=== PATIENT | female | born 1990 | race Caucasian/White ===

== ENCOUNTER 2016-05-07 02:45 | Inpatient (IN) | payer OTHER ==
[2016-05-07 04:30] VITALS: BMI 33.4
[2016-05-07] MEDS ORDERED: ZIDOVUDINE INJECTION 1,000 MG in DEXTROSE 5%-WATER - 150 ML IVPB ONE (04:30)
[2016-05-07] MEDS ORDERED: ZIDOVUDINE INJECTION 1,000 MG in DEXTROSE 5%-WATER - 150 ML IVPB SCH ×2 (04:45→06:00)
[2016-05-07] MEDS ORDERED: AMPICILLIN 2 GM/100 ML BAG (PRE-DOCKED) IVPB ONE (05:00)
[2016-05-07] MEDS ORDERED: WATER IVPB ONE (05:15)
[2016-05-07] MEDS ORDERED: DEXTROSE 5% IVPB ONE (05:15)
[2016-05-07] MEDS ORDERED: ZIDOVUDINE IVPB ONE (05:15)
[2016-05-07 05:58] LABS: BASOPHIL 0.3 % (0-2.0); MCHC 33.4 g/dl (32.0-36.0); MEAN CELL VOLUME 86.8 fl (80-96); MEAN PLT VOLUME 13.1 fl (7.5-11.1); NEUTROPHILS 64.8 % (42.8-82.8); PLATELET COUNT 144 K/MM3 (134-434); WHITE BLOOD COUNT 8.9 K/mm3 (4.0-10.0)
[2016-05-07] MEDS ORDERED: ELECTROLYTE-148 SOLN 1,000 ML IV SCH (06:00)
[2016-05-07 06:11] LABS: INR 1.04 (0.82-1.09); PROTHROMBIN TIME (PATIENT) 11.5 SEC (9.98-11.88)
[2016-05-07 06:13] LABS: ACTIVATED PTT 26.9 SECONDS (26.9-34.4)
[2016-05-07 06:26] LABS: CREATININE 0.6 mg/dL (0.55-1.02)
[2016-05-07] MEDS ORDERED: BUTORPHANOL TARTRATE 1 MG/ML VIAL IVPUSH ONE ×2 (07:47→16:53)
--- NOTE | 2016-05-07 08:01 | HP ---
Past Medical History - Primary Care Physician PCP:: Alexandre Pruett - Admission Chief Complaint: 39 weeks, labor, HIV positve History of Present Illness: 26 yo f g 5 p2022 edc by 05/12/16 in labor, cx 3 cm 75 vx -2 mi, fhr cat 1, contraction irregular. hx of positve HIV , since 2014, . viral load undetectable as per patient History Source: Patient Limitations to Obtaining History: No Limitations - Past Medical History Renal/: Yes: UTI (admitted for pyelo during ) ...: 5 ...Para: 2 ...Term: 2 ...: 0 ...Spon : 1 ...Induced : 1 ...Multiple Gestation: 0 ...LMP: 08/06/15 ... Weeks Gestation by Dates: 39.2 ...EDC by Dates: 05/12/16 ...EDC by Sono: 05/17/16 Infectious Disease: Yes: HIV - Past Surgical History Hx Myomectomy: No Hx Transabdominal Cerclage: No Additional Surgical History: bunionectomy - Smoking History Smoking history: Current every day smoker Have you smoked in the past 12 months: Yes Aproximately how many cigarettes per day: 2 If you are a former smoker, when did you quit?: PATIENT STATES SHE ONLY STARTED SMOKING AGAIN THIS WEEK. - Alcohol/Substance Use Hx Alcohol Use: No - Social History History of Recent Travel: No Home Medications - Allergies Allergies/Adverse Reactions: Allergies Allergy/AdvReac Type Severity Reaction Status Date / Time No Known Allergies Allergy Verified 05/07/16 05:55 - Home Medications Home Medications: Ambulatory Orders Emtricitabine/Tenofovir [Truvada] 1 tab PO DAILY 10/31/15 Dolutegravir Sodium 50 mg PO DAILY 04/10/16 Ferrous Sulfate 325 mg PO DAILY 05/07/16 Pnv 29-1 Tablet 1 tab PO DAILY 05/07/16 Review of Systems - Review of Systems Constitutional: reports: No Symptoms HENT: reports: No Symptoms Neck: reports: No Symptoms Cardiovascular: reports: No Symptoms Respiratory: reports: No Symptoms Gastrointestinal: reports: No Symptoms Genitourinary: reports: Frequency Breasts: reports: No Symptoms Reported Musculoskeletal: reports: No Symptoms Integumentary: reports: No Symptoms Neurological: reports: No Symptoms Endocrine: reports: No Symptoms Hematology/Lymphatic: reports: No Symptoms Psychiatric: reports: No Symptoms Physical Exam - Maternity Vital Signs: Vital Signs Temperature 97.8 F 05/07/16 07:00 Pulse Rate 80 05/07/16 07:00 Respiratory Rate 18 05/07/16 07:00 Blood Pressure 102/42 05/07/16 07:00 O2 Sat by Pulse Oximetry (%) Constitutional: Yes: Well Nourished, No Distress, Calm Eyes: Yes: WNL, Conjunctiva Clear, EOM Intact HENT: Yes: WNL, Atraumatic, Normocephalic Neck: Yes: WNL, Supple, Trachea Midline Cardiovascular: Yes: WNL, Regular Rate and Rhythm Breast(s): Yes: WNL - Abdominal Exam/OB Fundal Height: 40 Number of Fetuses: Single Presentation: Vertex Contractions: Yes Regularity: Irregular Intensity: Mod/Strong Monitor Mode: External Heart Rate Location: [facility] Category: I Accelerations: Uniform Decelerations: None - Vaginal Exam/OB Vaginal Bleediing: No Speculum Exam: No Dilatation (cm): 3 cm Effacement (%): 75 Amniotic Membrane Status: Intact Presentation: Vertex/Position Station: -2 - Physical Exam Musculoskeletal: Yes: WNL Extremities: Yes: WNL Edema: Yes Edema: LLE: Trace, RLE: Trace Deep Tendon Reflex Grade: Normal +2 - Labs Lab Results: CBC, BMP 05/07/16 04:50 05/07/16 04:50 Hemorrhage Risk Assessment - Risk Factors Medium Risk Factors: Yes: Greater than 4 previous births, None Risk Score: 2 Risk Level: High Risk Problem List - Problems (1) with 39 completed weeks gestation Code(s): Z3A.39 - 39 WEEKS GESTATION OF (2) HIV disease affecting Code(s): O98.719 - HUMAN IMMUNODEF VIRUS DISEASE COMP , UNSP TRIMESTER Qualifiers: Trimester: third trimester Qualified Code(s): O98.713 - Human immunodeficiency virus [HIV] disease complicating , third trimester (3) First stage of labor established Code(s): AMU8166 - Assessment/Plan plan admit, fh monitoring, anti viaral iv meds .pain management
[2016-05-07] MEDS ORDERED: OXYTOCIN 15 UNITS/ LR 250 ML 250 ML IVPB SCH (08:15)
[2016-05-07] MEDS: AMPICILLIN (PRE-DOCKED) 1 GM/100 ML BAG IVPB SCH ×3 (09:30→17:00)
[2016-05-07] MEDS ORDERED: PRENATAL VITAMINS W/ FOLIC ACID TABLET (FP) PO SCH (10:00)
--- NOTE | 2016-05-07 14:31 | PN ---
Progress Note (short form) - Note Progress Note: cx 5 cm, 80 vx -1 fhr cat 1 arom, clear , fhr cat 1 Problem List - Problems (1) with 39 completed weeks gestation Code(s): Z3A.39 - 39 WEEKS GESTATION OF (2) HIV disease affecting Code(s): O98.719 - HUMAN IMMUNODEF VIRUS DISEASE COMP , UNSP TRIMESTER Qualifiers: Trimester: third trimester Qualified Code(s): O98.713 - Human immunodeficiency virus [HIV] disease complicating , third trimester (3) First stage of labor established Code(s): FTN2040 -
--- NOTE | 2016-05-07 16:52 | PN ---
Progress Note (short form) - Note Progress Note: cx 7 cm 100 vx 0 mr , fhr cat 1, contraction regular q 2 min, wants pain meds Problem List - Problems (1) with 39 completed weeks gestation Code(s): Z3A.39 - 39 WEEKS GESTATION OF (2) HIV disease affecting Code(s): O98.719 - HUMAN IMMUNODEF VIRUS DISEASE COMP , UNSP TRIMESTER Qualifiers: Trimester: third trimester Qualified Code(s): O98.713 - Human immunodeficiency virus [HIV] disease complicating , third trimester (3) First stage of labor established Code(s): EJW4145 -
[2016-05-07] MEDS ORDERED: BENZOCAINE 28 GM HEMORRHOIDAL OINTMENT TP PRN (17:28)
[2016-05-07] MEDS ORDERED: BENZOCAINE 20% 57 GM BOTTLE TP PRN (17:28)
[2016-05-07] MEDS ORDERED: ACETAMINOPHEN 325 MG TABLET (FP) PO PRN (17:28)
[2016-05-07] MEDS ORDERED: WITCH HAZEL 50% (TUCKS) 40 PAD/JAR PAD TP PRN (17:28)
[2016-05-07] MEDS ORDERED: IBUPROFEN 600 MG TABLET (FP) PO PRN (17:28)
[2016-05-07] MEDS ORDERED: METHYLERGONOVINE MALEATE 0.2 MG/1 ML AMP IM PRN (17:28)
[2016-05-07] MEDS ORDERED: BISACODYL 10 MG SUPP.RECT RC PRN (17:28)
[2016-05-07] MEDS ORDERED: D5W-LR W/ 20 UNITS OXYTOCIN 1,000 ML IV SCH (17:30)
[2016-05-07] MEDS: EMTRICITABINE 200MG/TENOFOVIR 300MG PO SCH (20:40)
[2016-05-08] MEDS ORDERED: FERROUS SO4 325 MG TABLET (FP) PO SCH (08:00)
[2016-05-08 08:45] LABS: BASOPHIL 0.5 % (0-2.0); EOSINOPHIL 2.3 % (0-4.5); MCH 28.9 pg (25.7-33.7); MCHC 32.8 g/dl (32.0-36.0); MEAN CELL VOLUME 88.1 fl (80-96); MEAN PLT VOLUME 12.4 fl (7.5-11.1); NEUTROPHILS 66.9 % (42.8-82.8); PLATELET COUNT 110 K/MM3 (134-434); RDW 15.5 % (11.6-15.6)
[2016-05-08] MEDS: EMTRICITABINE 200MG/TENOFOVIR 300MG PO SCH (09:05)
[2016-05-08] MEDS: FERROUS SO4 325 MG TABLET (FP) PO SCH ×2 (09:05→17:37)
[2016-05-08] MEDS: PRENATAL VITAMINS W/ FOLIC ACID TABLET (FP) PO SCH (09:05)
[2016-05-08] MEDS: DOLUTEGRAVIR SODIUM 50 MG TABLET PO SCH (09:05)
--- NOTE | 2016-05-08 12:44 | PN ---
Post Progress Note Post Day: 1 Type of Delivery: Vital Signs: Vital Signs Temperature 99.3 F 05/08/16 07:59 Pulse Rate 98 H 05/08/16 07:59 Respiratory Rate 20 05/08/16 07:59 Blood Pressure 135/56 05/08/16 07:59 O2 Sat by Pulse Oximetry (%) Breast Exam: Yes: Soft Uterus: Yes: Fundus Firm Abdomen/GI: Yes: Abdomen soft Lochia: Yes: Rubra Lochia, amount: Small Extremities: Yes: Calves non-tender Perineum: Yes: Intact Activity: Ambulating - Labs Labs: CBC WBC 9.0 K/mm3 (4.0-10.0) 05/08/16 07:00 RBC 4.07 M/mm3 (3.60-5.2) 05/08/16 07:00 Hgb 11.8 GM/dL (10.7-15.3) 05/08/16 07:00 Hct 35.8 % (32.4-45.2) 05/08/16 07:00 MCV 88.1 fl (80-96) 05/08/16 07:00 MCHC 32.8 g/dl (32.0-36.0) 05/08/16 07:00 RDW 15.5 % (11.6-15.6) 05/08/16 07:00 Plt Count 110 K/MM3 (134-434) L D 05/08/16 07:00 MPV 12.4 fl (7.5-11.1) H 05/08/16 07:00 Neutrophils % 66.9 % (42.8-82.8) 05/08/16 07:00 Lymphocytes % 24.2 % (8-40) 05/08/16 07:00 Monocytes % 6.1 % (3.8-10.2) 05/08/16 07:00 Eosinophils % 2.3 % (0-4.5) 05/08/16 07:00 Basophils % 0.5 % (0-2.0) 05/08/16 07:00 Assessment/Plan reg diet oob continue care
[2016-05-08] MEDS ORDERED: SENNOSIDES/DOCUSATE COMBO (SENNA PLUS) TABLET (UD) PO PRN (22:00)
[2016-05-09] MEDS: FERROUS SO4 325 MG TABLET (FP) PO SCH (08:31)
[2016-05-09 08:44] VITALS: BP 126/88; PULSE 81; TEMP 98.3
[2016-05-09] MEDS: EMTRICITABINE 200MG/TENOFOVIR 300MG PO SCH (09:22)
[2016-05-09] MEDS: DOLUTEGRAVIR SODIUM 50 MG TABLET PO SCH (09:22)
[2016-05-09] MEDS: PRENATAL VITAMINS W/ FOLIC ACID TABLET (FP) PO SCH (09:22)
--- NOTE | 2016-05-11 03:32 | DS ---
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: Vital Signs Temperature 98.3 F 05/09/16 08:43 Pulse Rate 81 05/09/16 08:43 Respiratory Rate 20 05/09/16 08:43 Blood Pressure 126/88 05/09/16 08:43 O2 Sat by Pulse Oximetry (%) Constitutional: Yes: Well Nourished, No Distress, Calm Eyes: Yes: WNL, Conjunctiva Clear, EOM Intact HENT: Yes: WNL, Atraumatic, Normocephalic Neck: Yes: WNL, Supple, Trachea Midline Cardiovascular: Yes: WNL, Regular Rate and Rhythm Respiratory: Yes: WNL, Regular, CTA Bilaterally Gastrointestinal: Yes: WNL ...Rectal Exam: Yes: WNL Renal/: Yes: WNL ....Post : Yes: Uterus firm, Uterus non-tender, Slight lochia rubra Breast(s): Yes: WNL Musculoskeletal: Yes: WNL Extremities: Yes: WNL Edema: No Integumentary: Yes: WNL Neurological: Yes: WNL, Alert, Oriented ...Motor Strength: WNL Psychiatric: Yes: WNL, Alert, Oriented Labs: CBC, BMP 05/08/16 07:00 05/07/16 04:50 Delivery - Delivery Vaginal Delivery: Spontaneous (no complication) Type of Anesthesia: None Episiotomy/Laceration: None EBL (cc): 300 Delivery, Single - Stages of Labor Date 1st Stage Initiatied: 05/07/16 Time 1st Stage Initiated: 01:00 Date 2nd Stage Initiated: 05/07/16 Time 2nd Stage Initiated: 17:10 Date of Delivery: 05/07/16 Time of Delivery: 17:18 Time Placenta Delivered: 17:20 Placenta: Yes: Spontaneous - 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 [phone] Referrals: Alexandre Pruett MD [Staff Physician] - Disposition: HOME - Home Medications Comprehensive Discharge Medication List: Ambulatory Orders Emtricitabine/Tenofovir [Truvada] 1 tab PO DAILY 10/31/15 Dolutegravir Sodium 50 mg PO DAILY 04/10/16 Ferrous Sulfate 325 mg PO DAILY 05/07/16 Pnv 29-1 Tablet 1 tab PO DAILY 05/07/16 Ibuprofen [Motrin -] 600 mg PO TID #21 tablet 05/08/16
== END 2016-05-09 16:20 | disposition home or self-care (01) | DRG 560 ==
LOC: JDEL 02:45 → JLDR 03:40 → J3W 20:20
PROVIDERS: ADMIT Obstetrics & Gynecology; ATTEND Obstetrics & Gynecology
PROC: 10E0XZZ Delivery of Products of Conception, External Approach (ICD-10-PCS; principal; 2016-05-07)
DX: O98.72 Human immunodeficiency virus [HIV] disease complicating childbirth (principal); Z3A.39 39 weeks gestation of pregnancy; Z37.0 Single live birth; Z21 Asymptomatic human immunodeficiency virus [HIV] infection status
CPT/HCPCS: 36415; 59409; 80048; 85025; 85610; 85730; 86593; 86850; 86900; 86901

== ENCOUNTER → 2016-08-23 | Emergency (ER) | payer OTHER ==
[2016-08-23 23:46] VITALS: BP 109/68; PULSE 93; TEMP 98.4; BMI 29.2
--- NOTE | 2016-08-24 01:08 | PDOC ---
History of Present Illness - General History Source: Patient Exam Limitations: No Limitations - History of Present Illness Travel History: No Timing/Duration: reports: intermittent Quality: reports: mild Pain Radiation: reports: back Activities at Onset: reports: none <Lay Flores - Last Filed: 08/24/16 02:52> <Dee Langford - Last Filed: 08/26/16 06:38> - General Chief Complaint: Back Pain Stated Complaint: BACK PAIN Time Seen by Provider: 08/24/16 00:28 Past History - Past Medical History Asthma: No Cancer: No Cardiac Disorders: No Diabetes: No HTN: No Seizures: No Thyroid Disease: No - Reproductive History (#): 3 Para: 1 Cervical CA: No Dysfunctional Uterine Bleeding: No Ectopic : No Endometrial CA: No Polycystic Ovaries: No Therapeutic (s) & number: No Tubal Ligation: No Spontaneous : 1 - Psycho/Social/Smoking Cessation Hx Anxiety: No Suicidal Ideation: No Smoking Status: No Smoking History: Current every day smoker Have you smoked in the past 12 months: Yes Number of Cigarettes Smoked Daily: 10 If you are a former smoker, when did you quit?: PATIENT STATES SHE ONLY STARTED SMOKING AGAIN THIS WEEK. Information on smoking cessation initiated: No Hx Alcohol Use: No Drug/Substance Use Hx: No Substance Use Type: None Hx Substance Use Treatment: No <Lay Flores - Last Filed: 08/24/16 02:52> <Dee Langford - Last Filed: 08/26/16 06:38> - Past Medical History Allergies/Adverse Reactions: Allergies Allergy/AdvReac Type Severity Reaction Status Date / Time No Known Allergies Allergy Verified 08/23/16 23:46 Home Medications: Ambulatory Orders Emtricitabine/Tenofovir [Truvada] 1 tab PO DAILY 10/31/15 Dolutegravir Sodium 50 mg PO DAILY 04/10/16 Ferrous Sulfate 325 mg PO DAILY 05/07/16 Pnv 29-1 Tablet 1 tab PO DAILY 05/07/16 Ibuprofen [Motrin -] 600 mg PO TID #21 tablet 05/08/16 Review of Systems - Review of Systems Constitutional: No: Symptoms Reported, See HPI, Chills, Diaphoresis, Fever, Loss of Appetite, Malaise, Night Sweats, Weakness, Weight Stable, Unintentional Wgt. Loss, Unexplained wgt Loss, Other HEENTM: No: Symptoms Reported, See HPI, Eye Pain, Blurred Vision, Tearing, Recent change in vision, Double Vision, Cataracts, Ear Pain, Ocular Prothesis, Ear Discharge, Nose Pain, Nose Congestion, Tinnitus, Nose Bleeding, Hearing Loss , Throat Pain, Throat Swelling, Mouth Pain, Dental Problems, Difficulty Swallowing, Mouth Swelling, Other Respiratory: No: Symptoms reported, See HPI, Cough, Orthopnea, Shortness of Breath, SOB with Exertion, SOB at Rest, Stridor, Wheezing, Productive cough, Hemoptysis, Other Cardiac (ROS): No: Symptoms Reported, See HPI, Chest Pain, Edema, Irregular Heart Rate, Lightheadedness, Palpitations, Syncope, Chest Tightness, Other : Yes: Other (vaginal bleeding) Musculoskeletal: No: Symptoms Reported, See HPI, Back Pain, Gout, Joint Pain, Joint Swelling, Muscle Pain, Muscle Weakness, Neck Pain, Joint Stiffness, Other Integumentary: No: Symptoms Reported, See HPI, Bruising, Change in Color, Change in Hair/Nails, Dryness, Erythema, Flushing, Lesions, Lumps, Pallor, Pruritus, Rash, Sweating, Other Neurological: No: Symptoms reported, See HPI, Headache, Numbness, Paresthesia, Pre-Existing Deficit, Seizure, Tingling, Tremors, Weakness, Unsteady Gait, Ataxia, Dizziness, Other <Lay Flores - Last Filed: 08/24/16 02:52> *Physical Exam - Vital Signs Last Vital Signs Temp Pulse Resp BP Pulse Ox 98.4 F 93 H 18 109/68 99 08/23/16 23:43 08/23/16 23:43 08/23/16 23:43 08/23/16 23:43 08/23/16 23:43 - Physical Exam General Appearance: Yes: Nourished HEENT: positive: Normal Voice Neck: positive: Supple Respiratory/Chest: positive: Lungs Clear Cardiovascular: positive: Regular Rhythm, Regular Rate Female Pelvic Exam: positive: vaginal bleeding Gastrointestinal/Abdominal: positive: Normal Bowel Sounds, Soft Musculoskeletal: positive: Normal Inspection Extremity: positive: Normal Inspection, Normal Range of Motion Integumentary: positive: Normal Color, Warm Neurologic: positive: Fully Oriented, Alert <Lay Flores - Last Filed: 08/24/16 02:52> - Vital Signs Last Vital Signs Temp Pulse Resp BP Pulse Ox 98.4 F 93 H 18 109/68 99 08/23/16 23:43 08/23/16 23:43 08/23/16 23:43 08/23/16 23:43 08/23/16 23:43 <Dee Langford - Last Filed: 08/26/16 06:38> ED Treatment Course - ADDITIONAL ORDERS Additional order review: Laboratory Results 08/24/16 02:08 Beta HCG, Quant 415.1 <Dee Langford - Last Filed: 08/26/16 06:38> Medical Decision Making - Medical Decision Making 08/24/16 02:24 26-year-old female presents with a history of vaginal bleeding for the past week. She states that she's had positive tests and was seen at another hospital about 3 days ago for vaginal bleeding. She states that the ultrasound showed a gestational sac that was low in the uterus She has not had a care for this yet. 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 Past medical history significant for HIV positive since 2014. She is followed by Dr. Pride at [facility], and she is on Truvada 5, para 2 08/24/16 02:51 bhcg 415 US no IUP just thickened endometrium up to 1.8cm <Lay Flores - Last Filed: 08/24/16 02:52> *DC/Admit/Observation/Transfer <Lay Flores - Last Filed: 08/24/16 02:52> - Discharge Dispostion Admit: No <Dee Langford - Last Filed: 08/26/16 06:38> Diagnosis at time of Disposition: Miscarriage - Discharge Dispostion Disposition: HOME Condition at time of disposition: Stable - Referrals Referrals: Gilda Ricks MD [Primary Care Provider] - - Patient Instructions Printed Discharge Instructions: DI for Miscarriage Additional Instructions: [facility] hand
== END | disposition home or self-care (01) ==
LOC: JER 23:35
DX: O02.1 Missed abortion (principal); O98.711 Human immunodeficiency virus [HIV] disease complicating pregnancy, first trimester; Z3A.00 Weeks of gestation of pregnancy not specified; Z21 Asymptomatic human immunodeficiency virus [HIV] infection status
CPT/HCPCS: 36415; 76817-TC; 84702; 99281-25; 99282-25

== ENCOUNTER 2017-10-06 22:45 | Inpatient (IN) | payer OTHER ==
[2017-10-06] MEDS ORDERED: PROMETHAZINE HCL 25 MG/1 ML VIAL IVPUSH ONE (23:45)
[2017-10-06] MEDS ORDERED: AMPICILLIN - 2 GM in SODIUM CHLORIDE 100 ML IVPB ONE (23:45)
[2017-10-06] MEDS ORDERED: ELECTROLYTE-148 SOLN 1,000 ML IV SCH (23:45)
[2017-10-06] MEDS ORDERED: BUTORPHANOL TARTRATE 1 MG/ML VIAL IVPUSH ONE (23:45)
--- NOTE | 2017-10-06 23:59 | HP ---
Past Medical History - Primary Care Physician PCP:: Alexandre Pruett - Admission Chief Complaint: 38.4 weeks, HIV positive , labor History of Present Illness: 27 yo f 0 6 3 38.4 weeks, with hx of positve HIV , viral load not detectable on antiviral ,c/o contraction since 7 pm tonight, no rom, no bleeding , cx 3 cm 80 vx -2 mi, fhr cat. , irregular contraction, vaginal delivery vs c/ s risks and benfit of each discussed , wants to try vaginal delivery History Source: Patient Limitations to Obtaining History: No Limitations - Past Medical History Renal/: Yes: UTI (admitted for pyelo during ) ...: 10 ...Para: 3 ...Induced : 6 ... Weeks Gestation by Dates: 38.4 Heme/Onc: Yes: Anemia Infectious Disease: Yes: HIV - Past Surgical History Hx Myomectomy: No Hx Transabdominal Cerclage: No - Smoking History Smoking history: Current every day smoker Have you smoked in the past 12 months: Yes Aproximately how many cigarettes per day: 10 If you are a former smoker, when did you quit?: PATIENT STATES SHE ONLY STARTED SMOKING AGAIN THIS WEEK. - Alcohol/Substance Use Hx Alcohol Use: No - Social History History of Recent Travel: No Home Medications - Allergies Allergies/Adverse Reactions: Allergies Allergy/AdvReac Type Severity Reaction Status Date / Time No Known Allergies Allergy Verified 09/27/17 22:19 - Home Medications Home Medications: Ambulatory Orders Tivicay 50 mg PO DAILY 09/18/17 Truvada 200 mg-300 mg Tablet 300 mg PO DAILY 09/18/17 Vit 108/Iron/Folic AC [ One Tablet] 1 each PO DAILY 09/27/17 Review of Systems - Review of Systems Constitutional: reports: Malaise Eyes: reports: No Symptoms HENT: reports: No Symptoms Neck: reports: No Symptoms Cardiovascular: reports: No Symptoms Respiratory: reports: No Symptoms Gastrointestinal: reports: No Symptoms Genitourinary: reports: No Symptoms Musculoskeletal: reports: Back Pain Integumentary: reports: No Symptoms Neurological: reports: No Symptoms Endocrine: reports: No Symptoms, Unexplained Weight Gain Hematology/Lymphatic: reports: No Symptoms Psychiatric: reports: No Symptoms Physical Exam - Maternity Constitutional: Yes: Well Nourished, No Distress, Calm Eyes: Yes: WNL, Conjunctiva Clear, EOM Intact HENT: Yes: WNL, Atraumatic, Normocephalic Neck: Yes: WNL, Supple, Trachea Midline Cardiovascular: Yes: WNL, Regular Rate and Rhythm Breast(s): Yes: WNL - Abdominal Exam/OB Fundal Height: 40 Number of Fetuses: Single Presentation: Vertex Contractions: Yes Regularity: Irregular Intensity: Moderate Monitor Mode: External Heart Rate Location: [facility] Category: I Accelerations: Uniform Decelerations: None - Vaginal Exam/OB Vaginal Bleediing: No Speculum Exam: No Dilatation (cm): 3 cm Effacement (%): 80 Amniotic Membrane Status: Intact Presentation: Vertex/Position Station: -3 - Physical Exam Musculoskeletal: Yes: WNL Extremities: Yes: WNL Edema: Yes Edema: LLE: Trace, RLE: Trace Deep Tendon Reflex Grade: Normal +2 ...Motor Strength: WNL Psychiatric: Yes: WNL Hemorrhage Risk Assessment - Risk Factors Medium Risk Factors: Yes: Greater than 4 previous births Risk Score: 1 Risk Level: Medium Risk Problem List - Problems (1) with 38 completed weeks gestation Code(s): Z3A.38 - 38 WEEKS GESTATION OF (2) HIV antibody positive Code(s): Z21 - ASYMPTOMATIC HUMAN IMMUNODEFICIENCY VIRUS INFECTION STATUS (3) Labor established Code(s): [id number] - Assessment/Plan admit, wants to have vaginal delivery anti viral labor protocol GBS poitve , iv amp prophylaxsis FHM pain management
[2017-10-07] MEDS ORDERED: AMPICILLIN SODIUM 2 GM VIAL ONE (00:41)
[2017-10-07 00:58] LABS: BASO % 0.3 % (0-2.0); EOS % 2.3 % (0-4.5); HEMATOCRIT 37.1 % (32.4-45.2); HEMOGLOBIN 12.6 GM/dL (10.7-15.3); LYMPH % 27.5 % (8-40); MCH 28.4 pg (25.7-33.7); MEAN CELL VOLUME 83.6 fl (80-96); MEAN PLT VOLUME 12.6 fl (7.5-11.1); MONO % 6.6 % (3.8-10.2); NEUT % 63.3 % (42.8-82.8); PLATELET COUNT 145 K/MM3 (134-434); RBC 4.44 M/mm3 (3.60-5.2); RDW 14.4 % (11.6-15.6); WHITE BLOOD COUNT 9.5 K/mm3 (4.0-10.0)
[2017-10-07] MEDS ORDERED: ZIDOVUDINE INJECTION 1,000 MG in DEXTROSE 5%-WATER - 150 ML IVPB SCH ×2 (01:00→01:30)
[2017-10-07 01:12] LABS: INR 0.95 (0.83-1.09); PROTHROMBIN TIME (PATIENT) 10.7 SEC (9.7-13.0)
[2017-10-07 01:14] LABS: ACTIVATED PTT 25.6 SECONDS (25.2-36.5)
[2017-10-07 01:21] VITALS: BMI 35.2
[2017-10-07 01:43] LABS: ANION GAP 11 MMOL/L (8-16); BLOOD UREA NITROGEN 4 mg/dL (7-18); CALCIUM 8.3 mg/dL (8.5-10.1); CHLORIDE 109 mmol/L (98-107); CO2 21 mmol/L (21-32); CREATININE 0.5 mg/dL (0.55-1.02); GLUCOSE,RANDOM 103 mg/dL (74-106); SODIUM 141 mmol/L (136-145)
[2017-10-07 03:15] LABS: COCAINE, UR NEGATIVE ng/ml (CUTOFF=300); URINE AMPHETAMINES NEGATIVE ng/ml (CUTOFF=500); URINE BARBITURATES NEGATIVE ng/ml (CUTOFF=200); URINE BENZODIAZEPINES NEGATIVE ng/ml (CUTOFF=200)
[2017-10-07 03:16] LABS: METHADONE, UR NEGATIVE ng/ml (CUTOFF=300); OPIATES, URI NEGATIVE ng/ml (CUTOFF=300); PHENCYCLIDINE,URINE NEGATIVE ng/ml (CUTOFF=25)
[2017-10-07] MEDS ORDERED: AMPICILLIN SODIUM 1 GM VIAL ONE (03:33)
[2017-10-07] MEDS ORDERED: BUTORPHANOL TARTRATE 1 MG/ML VIAL ONE ×2 (03:34)
[2017-10-07] MEDS ORDERED: PROMETHAZINE HCL 25 MG/1 ML VIAL ONE (03:34)
[2017-10-07] MEDS ORDERED: AMPICILLIN - 1 GM in SODIUM CHLORIDE 100 ML IVPB SCH (04:00)
[2017-10-07] MEDS ORDERED: LIDOCAINE HCL 1% PRESERVATIVE FREE - 30ML VIAL ONE (04:23)
[2017-10-07] MEDS ORDERED: OXYTOCIN 20 UNITS in 0.9% NS 20 UNIT/1,000 ML INFUS.BAG IV ONE (04:23)
[2017-10-07] MEDS ORDERED: BENZOCAINE 28 GM HEMORRHOIDAL OINTMENT TP PRN (04:49)
[2017-10-07] MEDS ORDERED: METHYLERGONOVINE MALEATE 0.2 MG/1 ML AMP IM PRN (04:49)
[2017-10-07] MEDS ORDERED: WITCH HAZEL 50% (TUCKS) 40 PAD/JAR PAD TP PRN (04:49)
[2017-10-07] MEDS ORDERED: BISACODYL 10 MG SUPP.RECT RC PRN (04:49)
[2017-10-07] MEDS ORDERED: BENZOCAINE 20% 57 GM BOTTLE TP PRN (04:49)
[2017-10-07] MEDS ORDERED: OXYTOCIN 20 UNITS in 0.9% NS 20 UNIT/1,000 ML INFUS.BAG IV SCH (05:00)
[2017-10-07] MEDS: ACETAMINOPHEN 325 MG TABLET (FP) PO PRN (08:14)
[2017-10-07] MEDS: IBUPROFEN 600 MG TABLET (FP) PO PRN (08:15)
[2017-10-07] MEDS ORDERED: TUBERCULIN PPD 5 TU/0.1ML SYRINGE (IN PATIENT USE ONLY) ID ONE (09:00)
[2017-10-07] MEDS: FERROUS SO4 325 MG TABLET (FP) PO SCH ×2 (09:59→21:54)
[2017-10-07] MEDS: PRENATAL VITAMINS W/ FOLIC ACID TABLET (FP) PO SCH (09:59)
[2017-10-07] MEDS: EMTRICITABINE 200MG/TENOFOVIR 300MG PO SCH (10:25)
[2017-10-07] MEDS: DOLUTEGRAVIR SODIUM 50 MG TABLET PO SCH (10:26)
[2017-10-07] MEDS ORDERED: DOLUTEGRAVIR SODIUM 50 MG TABLET PO SCH (15:00)
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
[2017-10-08] MEDS: ACETAMINOPHEN 325 MG TABLET (FP) PO PRN (01:41)
[2017-10-08] MEDS: IBUPROFEN 600 MG TABLET (FP) PO PRN (01:41)
--- NOTE | 2017-10-08 08:14 | PN ---
Post Progress Note - Subjective Subjective: no complains except cramps on & off Post Day: 1 Type of Delivery: Vital Signs: Vital Signs Temperature 98.6 F 10/08/17 05:18 Pulse Rate 103 H 10/08/17 05:18 Respiratory Rate 18 10/08/17 05:18 Blood Pressure 126/67 10/08/17 05:18 O2 Sat by Pulse Oximetry (%) Breast Exam: Yes: Soft, Other (bottle feeding ). No: Engorged Uterus: Yes: Fundus Firm, Fundus below umbilicus, Non-tender Lochia: Yes: Rubra Lochia, amount: Moderate Extremities: Yes: Calves non-tender. No: Edema Perineum: Yes: Intact - Labs Labs: CBC WBC 9.5 K/mm3 (4.0-10.0) 10/06/17 23:45 RBC 4.44 M/mm3 (3.60-5.2) 10/06/17 23:45 Hgb 12.6 GM/dL (10.7-15.3) 10/06/17 23:45 Hct 37.1 % (32.4-45.2) 10/06/17 23:45 MCV 83.6 fl (80-96) 10/06/17 23:45 MCH 28.4 pg (25.7-33.7) 10/06/17 23:45 MCHC 34.0 g/dl (32.0-36.0) 10/06/17 23:45 RDW 14.4 % (11.6-15.6) 10/06/17 23:45 Plt Count 145 K/MM3 (134-434) D 10/06/17 23:45 MPV 12.6 fl (7.5-11.1) H 10/06/17 23:45 Absolute Neuts (auto) 6.0 K/mm3 (1.5-8.0) 10/06/17 23:45 Neutrophils % 63.3 % (42.8-82.8) 10/06/17 23:45 Lymphocytes % 27.5 % (8-40) 10/06/17 23:45 Monocytes % 6.6 % (3.8-10.2) 10/06/17 23:45 Eosinophils % 2.3 % (0-4.5) 10/06/17 23:45 Basophils % 0.3 % (0-2.0) 10/06/17 23:45 Nucleated RBC % 0 % (0-0) 10/06/17 23:45 Problem List - Problems (1) Encounter for visit Code(s): Z39.2 - ENCOUNTER FOR ROUTINE FOLLOW-UP (2) HIV disease affecting Code(s): O98.719 - HUMAN IMMUNODEF VIRUS DISEASE COMP , UNSP TRIMESTER Qualifiers: Trimester: third trimester Qualified Code(s): O98.713 - Human immunodeficiency virus [HIV] disease complicating , third trimester Assessment/Plan stable. Dr Prince's consult noted ct ART meds . post op cbc pending discharge tomorrow.
[2017-10-08 08:33] LABS: BASO % 0.5 % (0-2.0); EOS % 2.8 % (0-4.5); HEMATOCRIT 35.2 % (32.4-45.2); HEMOGLOBIN 11.6 GM/dL (10.7-15.3); LYMPH % 35.2 % (8-40); MCH 27.7 pg (25.7-33.7); MEAN PLT VOLUME 11.1 fl (7.5-11.1); MONO % 6.4 % (3.8-10.2); NEUT % 55.1 % (42.8-82.8); PLATELET COUNT 121 K/MM3 (134-434); RBC 4.19 M/mm3 (3.60-5.2); RDW 14.7 % (11.6-15.6); WHITE BLOOD COUNT 8.8 K/mm3 (4.0-10.0)
[2017-10-08] MEDS: EMTRICITABINE 200MG/TENOFOVIR 300MG PO SCH (09:43)
[2017-10-08] MEDS: PRENATAL VITAMINS W/ FOLIC ACID TABLET (FP) PO SCH (09:43)
[2017-10-08] MEDS: FERROUS SO4 325 MG TABLET (FP) PO SCH ×2 (09:43→23:00)
[2017-10-08] MEDS: DOLUTEGRAVIR SODIUM 50 MG TABLET PO SCH (09:44)
[2017-10-08] MEDS ORDERED: SENNOSIDES/DOCUSATE COMBO (SENNA PLUS) TABLET (UD) PO PRN (22:00)
[2017-10-09] MEDS: ACETAMINOPHEN 325 MG TABLET (FP) PO PRN (04:26)
[2017-10-09] MEDS: IBUPROFEN 600 MG TABLET (FP) PO PRN (04:26)
[2017-10-09 07:56] VITALS: BP 112/70; PULSE 93; TEMP 98.7
[2017-10-09] MEDS: DOLUTEGRAVIR SODIUM 50 MG TABLET PO SCH (09:29)
[2017-10-09] MEDS: FERROUS SO4 325 MG TABLET (FP) PO SCH (09:29)
[2017-10-09] MEDS: PRENATAL VITAMINS W/ FOLIC ACID TABLET (FP) PO SCH (09:29)
[2017-10-09] MEDS: EMTRICITABINE 200MG/TENOFOVIR 300MG PO SCH (09:29)
--- NOTE | 2017-10-09 09:29 | PN ---
Post Progress Note - Subjective Subjective: no complains Post Day: 2 Type of Delivery: Vital Signs: Vital Signs Temperature 98.7 F 10/09/17 07:54 Pulse Rate 93 H 10/09/17 07:54 Respiratory Rate 20 10/09/17 07:54 Blood Pressure 112/70 10/09/17 07:54 O2 Sat by Pulse Oximetry (%) Breast Exam: Yes: Soft, Other (alex;e feeding ). No: Engorged Uterus: Yes: Fundus Firm, Fundus below umbilicus, Non-tender Lochia: Yes: Rubra Lochia, amount: Moderate Extremities: Yes: Calves non-tender Perineum: Yes: Intact Activity: Ambulating - Labs Labs: CBC WBC 8.8 K/mm3 (4.0-10.0) 10/08/17 08:15 RBC 4.19 M/mm3 (3.60-5.2) 10/08/17 08:15 Hgb 11.6 GM/dL (10.7-15.3) 10/08/17 08:15 Hct 35.2 % (32.4-45.2) 10/08/17 08:15 MCV 84.0 fl (80-96) 10/08/17 08:15 MCH 27.7 pg (25.7-33.7) 10/08/17 08:15 MCHC 33.0 g/dl (32.0-36.0) 10/08/17 08:15 RDW 14.7 % (11.6-15.6) 10/08/17 08:15 Plt Count 121 K/MM3 (134-434) L 10/08/17 08:15 MPV 11.1 fl (7.5-11.1) D 10/08/17 08:15 Absolute Neuts (auto) 4.8 K/mm3 (1.5-8.0) 10/08/17 08:15 Absolute Lymphs (auto) 2.7 x10E3/uL (0.7-3.1) 10/06/17 23:45 Neutrophils % 55.1 % (42.8-82.8) 10/08/17 08:15 Lymphocytes % 35.2 % (8-40) D 10/08/17 08:15 Monocytes % 6.4 % (3.8-10.2) 10/08/17 08:15 Eosinophils % 2.8 % (0-4.5) 10/08/17 08:15 Basophils % 0.5 % (0-2.0) 10/08/17 08:15 Nucleated RBC % 0 % (0-0) 10/08/17 08:15 Lymphocytes 29 % (Not Estab.) 10/06/17 23:45 Nucleated RBCs TNP 10/06/17 23:45 Laboratory Tests 10/06/17 23:45 Absolute CD3 Count 2306 % CD3+ Lymphocytes 85.4 Absolute CD4 [place] 1393 % CD4+ Lymphocyte 51.6 CD4/CD8 Ratio 1.58 % CD8+ Lymphocyte 32.6 Absolute CD8 Count 880 Problem List - Problems (1) Encounter for visit Code(s): Z39.2 - ENCOUNTER FOR ROUTINE FOLLOW-UP (2) HIV disease affecting Code(s): O98.719 - HUMAN IMMUNODEF VIRUS DISEASE COMP , UNSP TRIMESTER Qualifiers: Trimester: third trimester Qualified Code(s): O98.713 - Human immunodeficiency virus [HIV] disease complicating , third trimester Assessment/Plan stable. baby is being treated . 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
--- NOTE | 2017-10-13 22:27 | DS ---
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 Vital Signs: Vital Signs Temperature 98.7 F 10/09/17 07:54 Pulse Rate 93 H 10/09/17 07:54 Respiratory Rate 20 10/09/17 07:54 Blood Pressure 112/70 10/09/17 07:54 O2 Sat by Pulse Oximetry (%) Constitutional: Yes: Well Nourished, No Distress, Calm Eyes: Yes: WNL, Conjunctiva Clear, EOM Intact HENT: Yes: WNL, Atraumatic, Normocephalic Neck: Yes: WNL, Supple, Trachea Midline Cardiovascular: Yes: WNL, Regular Rate and Rhythm Respiratory: Yes: WNL, Regular, CTA Bilaterally Gastrointestinal: Yes: WNL ...Rectal Exam: Yes: WNL Renal/: Yes: WNL ....Post : Yes: Uterus firm, Uterus non-tender, Slight lochia rubra Breast(s): Yes: WNL Musculoskeletal: Yes: WNL Extremities: Yes: WNL Edema: No Integumentary: Yes: WNL Neurological: Yes: WNL, Alert, Oriented ...Motor Strength: WNL Psychiatric: Yes: WNL, Alert, Oriented Labs: CBC, BMP 10/08/17 08:15 10/06/17 23:38 Delivery - Delivery Vaginal Delivery: Spontaneous (no complication) Type of Anesthesia: None Episiotomy/Laceration: None EBL (cc): 400 Delivery, Single - Stages of Labor Date 1st Stage Initiatied: 10/06/17 Time 1st Stage Initiated: 18:00 Date 2nd Stage Initiated: 10/07/17 Time 2nd Stage Initiated: 04:15 Date of Delivery: 10/07/17 Time of Delivery: 04:26 Time Placenta Delivered: 04:30 Placenta: Yes: Spontaneous - Condition of Infant Hr Intern/Animal Ride Attendant Present: No Infant Gender: Female Weight: 6 lb 11 oz Position: Left, OA Total Hours ROM (Hrs/Mins): [id number] - 1 Minute Total Score: 8 5 Minutes Total Score: 9 - Feeding Plan Initial Plan: Elected not to breastfeed exclusively throughout hospitalization Discharge Summary Reason For Visit: ADMIT Procedures: Principal: Hospital Course: no complication Condition: Good - Instructions Diet, Activity, Other Instructions: Discharge Instructions * Out of Bed * * Regular Diet * Vida Care * Avoid sex for 6 weeks * RTC 4-6 weeks . * ct HIV meds , * ct follow up with your hiv clinic at [facility] If you experience excessive bleeding or fever over 101 degrees, call doctor, the clinic or go to the Emergency Room. call for appointment in 6 weeks at [facility]. [phone] Referrals: Alexandre Pruett MD [Family Provider] - Disposition: HOME - Home Medications Comprehensive Discharge Medication List: Ambulatory Orders Tivicay 50 mg PO DAILY 09/18/17 Truvada 200 mg-300 mg Tablet 300 mg PO DAILY 09/18/17 Vit 108/Iron/Folic AC [ One Tablet] 1 each PO DAILY 09/27/17 Acetaminophen [Tylenol .Regular Strength -] 650 mg PO Q3H PRN tablet 10/08/17 Dolutegravir Sodium [Tivicay] 50 mg PO DAILY tablet 10/08/17 Ferrous Sulfate [Feosol] 325 mg PO BID tab 10/08/17 Ibuprofen [Motrin -] 200 mg PO Q4H PRN tablet 10/08/17 Vitamins (Sjr) - 1 tab PO DAILY tablet 10/08/17
== END 2017-10-09 11:30 | disposition home or self-care (01) | DRG 560 ==
LOC: JDEL 22:45 → JLDR 23:15 → J3W 10-07 06:24
PROVIDERS: ADMIT Obstetrics & Gynecology; ATTEND Obstetrics & Gynecology
PROC: 10E0XZZ Delivery of Products of Conception, External Approach (ICD-10-PCS; principal; 2017-10-06)
DX: O98.713 Human immunodeficiency virus [HIV] disease complicating pregnancy, third trimester (principal); Z21 Asymptomatic human immunodeficiency virus [HIV] infection status; O99.824 Streptococcus B carrier state complicating childbirth; O99.013 Anemia complicating pregnancy, third trimester; D64.9 Anemia, unspecified; O99.334 Smoking (tobacco) complicating childbirth; F17.210 Nicotine dependence, cigarettes, uncomplicated; Z3A.38 38 weeks gestation of pregnancy; Z37.0 Single live birth
CPT/HCPCS: 36415; 59409; 80048; 80307; 85025; 85610; 85730; 86359; 86360; 86593; 86850; 86900; 86901; 87389

== ENCOUNTER 2018-04-12 23:55 | Emergency (ER) | payer OTHER ==
[2018-04-13 00:42] VITALS: BP 124/87; PULSE 98; TEMP 98.2; BMI 32.3
--- NOTE | 2018-04-13 01:57 | PDOC ---
*Physical Exam - Vital Signs Last Vital Signs Temp Pulse Resp BP Pulse Ox 98.2 F 98 H 17 124/87 100 04/13/18 00:29 04/13/18 00:29 04/13/18 00:29 04/13/18 00:29 04/13/18 00:29
--- NOTE | 2018-04-13 02:59 | PDOC ---
History of Present Illness - General Chief Complaint: Back Pain Stated Complaint: lower back pain Time Seen by Provider: 04/13/18 01:50 History Source: Patient Exam Limitations: No Limitations - History of Present Illness Initial Comments: 04/13/18 02:55 HISTORY OF PRESENT ILLNESS: 28-year-old woman with an LMP of 18 with a history of HIV (undetectable viral load, CD4 count greater than 1000) presents emergency Department with lower back pain which has been intermittent but progressive over the past 7 days. Patient reports the pain started with a dull ache at 2/10 and would wax and wane resolving completely but then returning after 20-30 minutes to currently having is 6/10 pain. Patient reports having frequent urinary tract infections which start as a dull ache in her lower back. She denies dysuria, hematuria, urinary frequency. Patient denies any complaints of vaginal bleeding, vaginal discharge or lower abdominal pain. No recent travel or sick contacts. PAST MEDICAL HISTORY:see HPI SURGICAL HISTORY: Denies ALLERGIES: No known drug allergies REVIEW OF SYSTEMS General/Constitutional: Denies fever or chills. Denies weakness, weight change. HEENT: Denies change in vision. Denies ear pain or discharge. Denies sore throat. Cardiovascular: Denies chest pain or shortness of breath. Respiratory: Denies cough, wheezing, or hemoptysis. Gastrointestinal: Denies nausea, vomiting, diarrhea or constipation. Denies rectal bleeding. Genitourinary: Denies dysuria, frequency, or change in urination. Musculoskeletal: see HPI Skin and breasts: Denies rash or easy bruising. Neurologic: Denies headache, vertigo, loss of consciousness, or loss of sensation. Psychiatric: Denies depression or anxiety. Endocrine: Denies increased thirst. Denies abnormal weight change. Hematologic/Lymphatic: Denies anemia, easy bleeding, or history of blood clots. Allergic/Immunologic: Denies hives or skin allergy. Denies latex allergy. PHYSICAL EXAM General Appearance: Well-appearing, appropriately dressed. No apparent distress , no intoxication. HEENT: EOMI, PERRLA, normal ENT inspection, normal voice, TMs normal, pharynx normal. No conjunctival pallor. No photophobia, scleral icterus. Neck: Supple. Trachea midline. No tenderness, rigidity, carotid bruit, stridor , lymphadenopathy, or thyromegaly. Respiratory/Chest: Lungs CTAB. No shortness of breath, chest tenderness, respiratory distress, accessory muscle use. No crackles, rales, rhonchi, stridor , wheezing, dullness Cardiovascular: RRR. S1, S2. No JVD, murmur, bradycardia, tachycardia. Vascular Pulses: Dorsalis-Pedis (R): 2+, Dorsalis-Pedis (L): 2+ Gastrointestinal/Abdominal: Normal bowel sounds. Abdomen soft, non-distended. No tenderness or rebound tenderness. No organomegaly, pulsatile mass, guarding, hernia, hepatomegaly, splenomegaly. Lymphatic: No adenopathy, tenderness. Musculoskeletal/Extremities: Normal inspection. FROM of all extremities, normal capillary refill. Pelvis Stable. No CVA tenderness. No tenderness to extremities, pedal edema, swelling, erythema or deformity. Integumentary: Appropriate color, dry, warm. No cyanosis, erythema, jaundice or rash Neurologic: thread singer II-XII intact. Fully oriented, alert. Appropriate mood/affect. Motor strength 5/5. No appreciable EOM palsy, facial droop or sensory deficit. Past History - Past Medical History Allergies/Adverse Reactions: Allergies Allergy/AdvReac Type Severity Reaction Status Date / Time No Known Allergies Allergy Verified 09/27/17 22:19 Home Medications: Ambulatory Orders Tivicay 50 mg PO DAILY 09/18/17 Truvada 200 mg-300 mg Tablet 300 mg PO DAILY 09/18/17 Vit 108/Iron/Folic AC [ One Tablet] 1 each PO DAILY 09/27/17 Acetaminophen [Tylenol .Regular Strength -] 650 mg PO Q3H PRN tablet 10/08/17 Dolutegravir Sodium [Tivicay] 50 mg PO DAILY tablet 10/08/17 Ferrous Sulfate [Feosol] 325 mg PO BID tab 10/08/17 Ibuprofen [Motrin -] 200 mg PO Q4H PRN tablet 10/08/17 Vitamins (Sjr) - 1 tab PO DAILY tablet 10/08/17 Asthma: No Cancer: No Cardiac Disorders: No Diabetes: No HTN: No Seizures: No Thyroid Disease: No - Reproductive History (#): 3 Para: 1 Cervical CA: No Dysfunctional Uterine Bleeding: No Ectopic : No Endometrial CA: No Polycystic Ovaries: No Therapeutic (s) & number: No Tubal Ligation: No Spontaneous : 1 - Suicide/Smoking/Psychosocial Hx Smoking Status: No Smoking History: Unknown if ever smoked Have you smoked in the past 12 months: Yes Number of Cigarettes Smoked Daily: 10 If you are a former smoker, when did you quit?: PATIENT STATES SHE ONLY STARTED SMOKING AGAIN THIS WEEK. Hx Alcohol Use: No Drug/Substance Use Hx: No Substance Use Type: None Hx Substance Use Treatment: No *Physical Exam - Vital Signs Last Vital Signs Temp Pulse Resp BP Pulse Ox 98.2 F 98 H 17 124/87 100 04/13/18 00:29 04/13/18 00:29 04/13/18 00:29 04/13/18 00:29 04/13/18 00:29 Moderate Sedation - Procedure Monitoring Vital Signs: Procedure Monitoring Vital Signs Temperature 98.2 F 04/13/18 00:29 Pulse Rate 98 H 04/13/18 00:29 Respiratory Rate 17 04/13/18 00:29 Blood Pressure 124/87 04/13/18 00:29 O2 Sat by Pulse Oximetry (%) 100 04/13/18 00:29 ED Treatment Course - LABORATORY CBC & Chemistry Diagram: 04/13/18 03:05 04/13/18 03:05 Medical Decision Making - Medical Decision Making 04/13/18 02:59 A/P: 28-year-old woman with lower back pain Urinalysis Urine culture CBC BMP Beta hCG Reassess 04/13/18 04:00 Laboratory testing urinalysis are unremarkable Beta hCG-56,275 Transvaginal ultrasound Reassess 04/13/18 05:52 Ultrasound as read by imaging steam bone press tender: Lives single intrauterine gestation with an estimated gestational age of 10 weeks and 1 day Heart rate is 150 bpm. 2.2 cm x 1.6 and a read by 1.5 cm fibroid within the anterior myometrium of the uterus The left ovary is normal. Right ovary was not seen. There is no free fluid. Tylenol 1 gram po now Discharge home *DC/Admit/Observation/Transfer Diagnosis at time of Disposition: Back pain affecting in first trimester - Discharge Dispostion Disposition: HOME Condition at time of disposition: Stable Decision to Admit order: No - Referrals Referrals: Nguyen Manning MD [Staff Physician] - - Patient Instructions Additional Instructions: Make an appointment with her REAL ESTATE REPRESENTATIVE for reevaluation. You have been given the phone number for the [facility] if you choose to transfer your care to [facility]. Take Tylenol as directed by manufacturers instructions for pain. Return to emergency department for any worsening pain, vaginal bleeding, vaginal discharge or for any other concerns. Thank you very much for choosing us to provide your emergent health care needs. - Post Discharge Activity
[2018-04-13 03:10] LABS: BASO % 0.4 % (0-2.0); EOS % 3.3 % (0-4.5); HEMATOCRIT 40.2 % (32.4-45.2); HEMOGLOBIN 13.9 GM/dL (10.7-15.3); LYMPH % 37.3 % (8-40); MCH 29.7 pg (25.7-33.7); MCHC 34.5 g/dl (32.0-36.0); MEAN PLT VOLUME 11.4 fl (7.5-11.1); MONO % 5.8 % (3.8-10.2); NEUT % 53.2 % (42.8-82.8); PLATELET COUNT 196 K/MM3 (134-434); RBC 4.68 M/mm3 (3.60-5.2); RDW 14.8 % (11.6-15.6); WHITE BLOOD COUNT 8.9 K/mm3 (4.0-10.0)
[2018-04-13 03:10] LABS: HCG,QUALITATIVE URINE Positive
[2018-04-13 03:13] LABS: URINE APPEARANCE CLEAR; URINE BILIRUBIN NEGATIVE (<2.0 mg/dL); URINE COLOR YELLOW; URINE GLUCOSE (UA) NEGATIVE (NEGATIVE); URINE KETONE NEGATIVE (NEGATIVE); URINE LEUK ESTERASE NEGATIVE (NEGATIVE); URINE NITRITE NEGATIVE (NEGATIVE); URINE PROTEIN NEGATIVE (NEGATIVE); URINE UROBILINOGEN NEGATIVE mg/dL (0.2-1.0)
[2018-04-13 03:42] LABS: ANION GAP 5 MMOL/L (8-16); BLOOD UREA NITROGEN 7 mg/dL (7-18); CALCIUM 9.1 mg/dL (8.5-10.1); CHLORIDE 107 mmol/L (98-107); CO2 28 mmol/L (21-32); CREATININE 0.6 mg/dL (0.55-1.3); GLUCOSE,RANDOM 121 mg/dL (74-106); POTASSIUM 4.4 mmol/L (3.5-5.1); SODIUM 140 mmol/L (136-145)
[2018-04-13] MEDS ORDERED: ACETAMINOPHEN 500 MG TABLET (FP) PO ONE (05:52)
[2018-04-13] MEDS ORDERED: ACETAMINOPHEN 325 MG TABLET (FP) ONE (05:57)
== END 2018-04-13 05:59 | disposition home or self-care (01) ==
LOC: JER 23:55
DX: O26.891 Other specified pregnancy related conditions, first trimester (principal); Z3A.10 10 weeks gestation of pregnancy; M54.5 Low back pain
CPT/HCPCS: 36415; 76801-TC; 80048; 81003; 84702; 84703; 85025; 87086; 99282-25

== ENCOUNTER 2018-04-15 10:31 | Emergency (ER) | payer OTHER ==
[2018-04-15 10:50] VITALS: TEMP 98.7; BMI 32.2
[2018-04-15 11:39] LABS: URINE APPEARANCE SLCLOUDY; URINE BILIRUBIN NEGATIVE (<2.0 mg/dL); URINE COLOR YELLOW; URINE GLUCOSE (UA) 2+ (NEGATIVE); URINE KETONE NEGATIVE (NEGATIVE); URINE LEUK ESTERASE 2+ (NEGATIVE); URINE NITRITE NEGATIVE (NEGATIVE); URINE PROTEIN 1+ (NEGATIVE); URINE UROBILINOGEN NEGATIVE mg/dL (0.2-1.0)
[2018-04-15 11:47] LABS: EPI CELLS MODERATE /HPF (FEW); URINE MUCUS MANY
--- NOTE | 2018-04-15 11:53 | PDOC ---
History of Present Illness - General Chief Complaint: Vaginal Bleeding Stated Complaint: BLEEDING/ Time Seen by Provider: 04/15/18 10:53 History Source: Patient (last tetanus is) Exam Limitations: No Limitations - History of Present Illness Travel History: No Initial Comments: 04/15/18 11:53 28-year-old 11 week female presents to the emergency room with complaints of continual low back pain for the past 2 days now with spotting since yesterday. Patient states and previous pregnancies has had subchorionic bleeding with successful pregnancies. Patient has no other complaints at this time. Timing/Duration: reports: changing over time Quality: reports: mild Abdominal Pain Onset Location: reports: other (back) Pain Radiation: reports: no radiation Activities at Onset: reports: none Aggravating Factors: improves with: None Alleviating Factors: improves with: None Past History - Travel Traveled outside of the country in the last 30 days: No Close contact w/someone who was outside of country & ill: No - Past Medical History Allergies/Adverse Reactions: Allergies Allergy/AdvReac Type Severity Reaction Status Date / Time No Known Allergies Allergy Verified 04/15/18 10:43 Home Medications: Ambulatory Orders Tivicay 50 mg PO DAILY 09/18/17 Truvada 200 mg-300 mg Tablet 300 mg PO DAILY 09/18/17 Vit 108/Iron/Folic AC [ One Tablet] 1 each PO DAILY 09/27/17 Acetaminophen [Tylenol .Regular Strength -] 650 mg PO Q3H PRN tablet 10/08/17 Dolutegravir Sodium [Tivicay] 50 mg PO DAILY tablet 10/08/17 Ferrous Sulfate [Feosol] 325 mg PO BID tab 10/08/17 Ibuprofen [Motrin -] 200 mg PO Q4H PRN tablet 10/08/17 Vitamins (Sjr) - 1 tab PO DAILY tablet 10/08/17 Asthma: No Cancer: No Cardiac Disorders: No COPD: No Diabetes: No HTN: No Seizures: No Thyroid Disease: No - Reproductive History (#): 3 Para: 1 Cervical CA: No Dysfunctional Uterine Bleeding: No Ectopic : No Endometrial CA: No Polycystic Ovaries: No Therapeutic (s) & number: No Tubal Ligation: No Spontaneous : 1 - Immunization History Immunization Up to Date: Yes - Suicide/Smoking/Psychosocial Hx Smoking Status: No Smoking History: Current every day smoker Have you smoked in the past 12 months: Yes Number of Cigarettes Smoked Daily: 2 If you are a former smoker, when did you quit?: PATIENT STATES SHE ONLY STARTED SMOKING AGAIN THIS WEEK. Information on smoking cessation initiated: No Hx Alcohol Use: No Drug/Substance Use Hx: No Substance Use Type: None Hx Substance Use Treatment: No Patient Lives Alone: No Review of Systems - Review of Systems Able to Perform ROS?: Yes Constitutional: No: Symptoms Reported HEENTM: No: Symptoms Reported Respiratory: No: Symptoms reported Cardiac (ROS): No: Symptoms Reported : Yes: Discharge Musculoskeletal: No: Symptoms Reported Integumentary: No: Symptoms Reported Neurological: No: Symptoms reported *Physical Exam - Vital Signs Last Vital Signs Temp Pulse Resp BP Pulse Ox 98.7 F 91 H 18 107/76 99 04/15/18 10:44 04/15/18 10:44 04/15/18 10:44 04/15/18 10:44 04/15/18 10:44 - Physical Exam General Appearance: Yes: Nourished, Appropriately Dressed. No: Apparent Distress HEENT: positive: EOMI Neck: positive: Supple Respiratory/Chest: positive: Lungs Clear, Normal Breath Sounds. negative: Respiratory Distress, Accessory Muscle Use Cardiovascular: positive: Regular Rhythm, Regular Rate. negative: Murmur Female Pelvic Exam: positive: cervical os closed, vaginal bleeding (min dark red without clots) Gastrointestinal/Abdominal: positive: Soft. negative: Tenderness Extremity: positive: Normal Capillary Refill. negative: Pedal Edema Integumentary: positive: Normal Color, Warm, Moist Neurologic: positive: Motor Strength 5/5 (ambulatory) Moderate Sedation - Procedure Monitoring Vital Signs: Procedure Monitoring Vital Signs Temperature 98.7 F 04/15/18 10:44 Pulse Rate 91 H 04/15/18 10:44 Respiratory Rate 18 04/15/18 10:44 Blood Pressure 107/76 04/15/18 10:44 O2 Sat by Pulse Oximetry (%) 99 04/15/18 10:44 ED Treatment Course - LABORATORY CBC & Chemistry Diagram: 04/15/18 11:30 04/15/18 11:30 - ADDITIONAL ORDERS Additional order review: Laboratory Results 04/15/18 11:20 Urine Color Yellow Urine Appearance Slcloudy Urine pH 6.0 Ur Specific Everson 1.027 Urine Protein 1+ H Urine Glucose (UA) 2+ H Urine Ketones Negative Urine Blood 3+ H Urine Nitrite Negative Urine Bilirubin Negative Urine Urobilinogen Negative Ur Leukocyte Esterase 2+ H - RADIOLOGY Radiology Studies Ordered: Category Date Time Status <14WKS US [US] Stat Ultrasound 04/15/18 11:11 Ordered Medical Decision Making - Medical Decision Making 04/15/18 12:07 Complaint: Vaginal bleeding since yesterday. Patient approximate 10-11 weeks . No other complaints. Exam. Patient with no abdominal tenderness minimal amount of dark red blood in the vault Plan: Urine, labs type and screen and ultrasound ordered 04/15/18 13:07 Laboratory Tests 04/15/18 04/15/18 04/15/18 11:20 11:30 11:30 WBC 7.9 Hgb 13.6 Hct 39.9 MPV 11.4 H Neutrophils % 57.8 Sodium 138 Potassium 4.4 Chloride 106 Carbon Dioxide 27 Anion Gap 5 L BUN 7 Creatinine 0.5 L Creat Clearance w eGFR > 60 Random Glucose 66 L Calcium 8.5 Total Bilirubin 0.3 AST 10 L ALT 24 Alkaline Phosphatase 64 Total Protein 7.9 Albumin 3.4 Beta HCG, Quant 00917.0 Urine Protein 1+ H Urine Glucose (UA) 2+ H Urine Blood 3+ H Urine Nitrite Negative Urine Bilirubin Negative Ur Leukocyte Esterase 2+ H Urine WBC (Auto) 50 Urine RBC (Auto) 1 Urine Mucus Many Blood Type Antibody Screen 04/15/18 11:30 WBC Hgb Hct MPV Neutrophils % Sodium Potassium Chloride Carbon Dioxide Anion Gap BUN Creatinine Creat Clearance w eGFR Random Glucose Calcium Total Bilirubin AST ALT Alkaline Phosphatase Total Protein Albumin Beta HCG, Quant Urine Protein Urine Glucose (UA) Urine Blood Urine Nitrite Urine Bilirubin Ur Leukocyte Esterase Urine WBC (Auto) Urine RBC (Auto) Urine Mucus Blood Type B POSITIVE Antibody Screen Negative 04/15/18 13:37 Ultrasound shows a single live intrauterine at 10 weeks 1 day with a heart rate of 1 65 bpm. Patient will be discharged home with Augmentin secondary to UTI and complaints of back pain for treatment of pyelonephritis *DC/Admit/Observation/Transfer Diagnosis at time of Disposition: Pyelonephritis, Vaginal bleeding - Discharge Dispostion Disposition: HOME Condition at time of disposition: Good - Referrals - Patient Instructions Printed Discharge Instructions: DI for Kidney Infection, DI for Vaginal Bleeding During Additional Instructions: Take Antibiotics as prescribed until completed. Drink plenty of fluids. Please up with your FUEL BUYER. Please return to the ED if you develop worsening symptoms. - Post Discharge Activity
[2018-04-15 12:02] LABS: BASO % 0.4 % (0-2.0); HEMATOCRIT 39.9 % (32.4-45.2); HEMOGLOBIN 13.6 GM/dL (10.7-15.3); LYMPH % 31.7 % (8-40); MCH 29.3 pg (25.7-33.7); MEAN PLT VOLUME 11.4 fl (7.5-11.1); MONO % 7.1 % (3.8-10.2); NEUT % 57.8 % (42.8-82.8); PLATELET COUNT 170 K/MM3 (134-434); RBC 4.64 M/mm3 (3.60-5.2); RDW 15.1 % (11.6-15.6); WHITE BLOOD COUNT 7.9 K/mm3 (4.0-10.0)
[2018-04-15 13:23] LABS: ALBUMIN 3.4 g/dl (3.4-5.0); ALK PHOS 64 U/L (45-117); ANION GAP 5 MMOL/L (8-16); BILIRUBIN,TOTAL 0.3 mg/dL (0.2-1); BLOOD UREA NITROGEN 7 mg/dL (7-18); CALCIUM 8.5 mg/dL (8.5-10.1); CHLORIDE 106 mmol/L (98-107); CO2 27 mmol/L (21-32); CREATININE 0.5 mg/dL (0.55-1.3); GLUCOSE,RANDOM 66 mg/dL (74-106); POTASSIUM 4.4 mmol/L (3.5-5.1); SGOT/AST 10 U/L (15-37); SGPT/ALT 24 U/L (13-61); SODIUM 138 mmol/L (136-145); TOT PROT 7.9 g/dl (6.4-8.2)
[2018-04-15 14:05] VITALS: BP 126/72; PULSE 86
== END 2018-04-15 14:06 | disposition home or self-care (01) ==
LOC: JER 10:31
DX: O26.891 Other specified pregnancy related conditions, first trimester (principal); O20.8 Other hemorrhage in early pregnancy; O23.01 Infections of kidney in pregnancy, first trimester; O98.711 Human immunodeficiency virus [HIV] disease complicating pregnancy, first trimester; Z21 Asymptomatic human immunodeficiency virus [HIV] infection status; Z3A.11 11 weeks gestation of pregnancy
CPT/HCPCS: 36415; 76801-TC; 80053; 81003; 81015; 84702; 85025; 86850; 86900; 86901; 87086; 99283-25

== ENCOUNTER 2018-09-09 18:57 | Inpatient (IN) | payer OTHER | END 2018-09-10 18:45 | disposition left against medical advice (07) | LOC: J3W 09-10 01:46 → JER 18:57 → JERBED 22:41 ==

== ENCOUNTER 2018-09-26 19:20 | Inpatient (IN) | payer OTHER ==
[2018-09-26] MEDS ORDERED: AMPICILLIN - 2 GM in SODIUM CHLORIDE 100 ML IVPB ONE (21:10)
[2018-09-26] MEDS ORDERED: BETAMET ACET/BETAMET NA PH 30 MG/5 ML VIAL IM ONE (21:12)
[2018-09-26] MEDS ORDERED: ELECTROLYTE-148 SOLN 1,000 ML IV SCH (21:15)
[2018-09-26] MEDS ORDERED: AMPICILLIN SODIUM 2 GM VIAL ONE (21:22)
[2018-09-26] MEDS ORDERED: BETAMET ACET/BETAMET NA PH 30 MG/5 ML VIAL ONE (21:23)
[2018-09-26] MEDS: EMTRICITABINE 200MG/TENOFOVIR 300MG PO SCH (21:30)
[2018-09-26] MEDS ORDERED: DOLUTEGRAVIR SODIUM 50 MG TABLET (NON-FORMULARY) PO ONE (21:30)
[2018-09-26 21:39] LABS: BASO % 0.4 % (0-2.0); EOS % 2.1 % (0-4.5); HEMATOCRIT 37.8 % (32.4-45.2); HEMOGLOBIN 12.5 GM/dL (10.7-15.3); LYMPH % 31.6 % (8-40); MCH 28.2 pg (25.7-33.7); MEAN CELL VOLUME 85.5 fl (80-96); MEAN PLT VOLUME 11.5 fl (7.5-11.1); NEUT % 57.9 % (42.8-82.8); PLATELET COUNT 116 K/MM3 (134-434); RBC 4.42 M/mm3 (3.60-5.2); RDW 15.2 % (11.6-15.6); WHITE BLOOD COUNT 7.4 K/mm3 (4.0-10.0)
[2018-09-26 21:44] LABS: HYALINE CASTS 1 /lpf (0-8); PH,URINE 7.5 (5.0-8.0); URINE APPEARANCE CLEAR; URINE BACTERIA 15.6 /hpf (NEGATIVE); URINE BILIRUBIN NEGATIVE (NEGATIVE); URINE COLOR YELLOW; URINE GLUCOSE (UA) TRACE (NEGATIVE); URINE KETONE NEGATIVE (NEGATIVE); URINE LEUK ESTERASE TRACE (NEGATIVE); URINE NITRITE NEGATIVE (NEGATIVE); URINE PROTEIN NEGATIVE (NEGATIVE); URINE RBC 0 /hpf (0-4); URINE UROBILINOGEN 0.2 mg/dL (0.2-1.0); URINE WBC 1 /hpf (0-5)
[2018-09-26 21:52] LABS: INR 0.98 (0.83-1.09); PROTHROMBIN TIME (PATIENT) 11.6 SEC (9.7-13.0)
[2018-09-26 21:55] LABS: ACTIVATED PTT 27.5 SECONDS (25.2-36.5)
[2018-09-26 21:57] LABS: COCAINE, UR NEGATIVE ng/ml (CUTOFF=300); METHADONE, UR NEGATIVE ng/ml (CUTOFF=300); OPIATES, URI NEGATIVE ng/ml (CUTOFF=300); PHENCYCLIDINE,URINE NEGATIVE ng/ml (CUTOFF=25); URINE AMPHETAMINES NEGATIVE ng/ml (CUTOFF=500); URINE BARBITURATES NEGATIVE ng/ml (CUTOFF=200); URINE BENZODIAZEPINES NEGATIVE ng/ml (CUTOFF=200)
[2018-09-26 21:59] LABS: ALBUMIN 2.8 g/dl (3.4-5.0); BILIRUBIN,TOTAL 0.2 mg/dL (0.2-1); BLOOD UREA NITROGEN 5.9 mg/dL (7-18); CALCIUM 8.7 mg/dL (8.5-10.1); CREATININE 0.5 mg/dL (0.55-1.3); POTASSIUM 4.1 mmol/L (3.5-5.1); TOT PROT 6.3 g/dl (6.4-8.2)
[2018-09-26 23:02] LABS: PLATELET ESTIMATE SLT DECREASE
[2018-09-27] MEDS ORDERED: AMPICILLIN SODIUM 1 GM VIAL ONE ×3 (00:36→09:28)
[2018-09-27] MEDS: EMTRICITABINE 200MG/TENOFOVIR 300MG PO SCH (00:40)
[2018-09-27] MEDS: AMPICILLIN - 1 GM in SODIUM CHLORIDE 100 ML IVPB SCH ×3 (01:10→09:37)
--- NOTE | 2018-09-27 01:17 | HP ---
Past Medical History - Primary Care Physician PCP:: Rocio Oscar - Admission Chief Complaint: 28 yrs , h/f, onset LP since ,3.00 PM 09/26/18 . pt went to [facility] by [facility] in [place] for labor evaluation, she was noted to be 3-4 cm, she signed out AMA from there came here. patient is Known c/o HIV since 2014, on ART during pregn . History of Present Illness: PNC at [address] [place] [address] with [facility] HIV mamagement at , [facility] with [facility] wt gain durin pregn 7 lbs panel 05/05/18 B Pos, Rpr neg, Rubella immune, Varicella immune, Hep Bsag neg, Hep A ag neg, Hep A ab pos , Hep C neg, sickle neg Cf screen neg ! hr GTT 238, pt was diagnosed GDM , she did not comply with appt & she was seen on ly on 09/26/18 for diabetes management h/o GBS pos during last pregn 09/19/17 Sonograms done by [facility] , last with GDM consult on 09/26/18 . prior to it interval growth sonos were done 09/26/18 report 34 wks,sliup, Vx,charisma 14.9, AC 95 %tile, HC 5 %tile efw 87 %tile ( 6'.0") , BPP 09/21, post placenta, UA dopplers reassuring Neg Nt screen & AFP screen , Hyperechoic Rt lower Lung echo ( ) , Nornal Echo pt was seen in L&D on 09/14/18 & 09/18/18 for labor assess pt walked on 09/26/18 in hot sun for about 1 mile , she was seen in the clinic & at [facility] office 09/12/18 [place] cr Blood work up Absolute CD3 1320 uL CD3+Lympphocyte 88 % Absolute CD4 - [place] -863 uL CD4 -lymphocyte 57.5 % CD4/CD8 ratio 1.81 CD8 -Lymphocyte 31.7 % Absolute CD8 Lymphocyte 476/uL HIV 1 PCR < 20 copies Quantiferon neg History Source: Patient, Medical Record Limitations to Obtaining History: No Limitations - 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 after that pt states she had no problem) Pulmonary: No: Asthma, Bronchitis Gastrointestinal: Yes: Constipation Renal/: Yes: UTI (admitted for pyelo during in 2017 pregn 2018 pregn h/o UTI during early pregn treated 09/09/18 no growth, 09/14/18 uc/s contaminated , mixed jazmin) ...: 9 ...Para: 4 (07/03/2007 7'6"mt ness, 05/09/12- 7'6" [facility], 05/07/16 6' 2"[facility]( hiv pos), 10/07/17 6'11" (hiv pos)[facility] ) ...Term: 4 ...: 0 ...Spon : 3 (11/2010, 07/2016) ...Induced : 1 (2013 ) ...Multiple Gestation: 0 ...LMP: 01/31/18 ... Weeks Gestation by Dates: 34 ...EDC by Dates: 11/07/18 ...EDC by Sono: 11/08/18 (34 weeks ) Heme/Onc: Yes: Anemia Infectious Disease: Yes: HIV (2018 RX Po Tivicay 50 mg, rx Truvada 300 mg po od , viral load undetectable <20 copies), STD's (h/o gonorrhea 01/2018 & 02/[address] neg) Psych: No: Addictions, Anxiety, Bipolar, Depression, Panic, Psychosis, Schizophrenia, Other - Past Surgical History Hx Myomectomy: No Hx Transabdominal Cerclage: No Additional Surgical History: left Bunionectomy - Smoking History Smoking history: Former smoker Have you smoked in the past 12 months: No Aproximately how many cigarettes per day: 2 If you are a former smoker, when did you quit?: PATIENT STATES SHE ONLY STARTED SMOKING AGAIN THIS WEEK. - Alcohol/Substance Use Hx Alcohol Use: No History of Substance Use: reports: None - Social History History of Recent Travel: No Home Medications - Allergies Allergies/Adverse Reactions: Allergies Allergy/AdvReac Type Severity Reaction Status Date / Time rilpivirine [From Complera] AdvReac Severe Low Blood Verified 09/27/18 06:24 Pressure - Home Medications Home Medications: Ambulatory Orders Dolutegravir Sodium [Tivicay] 50 mg PO ONCE 09/27/18 Emtricitabine/Tenofovir (Tdf) [Truvada 200 mg-300 mg Tablet] 1 each PO ONCE Vitamins (Sjr) - 1 tab PO DAILY 09/27/18 Family Disease History - Family Disease History Family Disease History: Diabetes: Grandparent (mat gma/gpa with dm/htn; pat side unk), Mother (a&w on meds for htn, dm), Heart Disease: Grandparent, Mother , Other: Grandparent, Father (a&w also with psoriasis), Mother, Brother (2 a&w) , Sister (4 a&w), Son (0), Daughter (4) Physical Exam - Maternity Vital Signs: Vital Signs Temperature 98.4 F 09/27/18 00:00 Pulse Rate 93 H 09/27/18 00:00 Respiratory Rate 20 09/27/18 00:00 Blood Pressure 110/56 L 09/27/18 00:00 O2 Sat by Pulse Oximetry (%) Selected Entries 09/26/18 21:30 Temperature 98.6 F Pulse Rate 119 H Respiratory 20 Rate Blood Pressure 138/81 Weight 170 lb Laboratory Tests 10/06/17 06/26/18 06/26/18 23:45 12:50 12:50 Absolute CD3 Count % CD3+ Lymphocytes Absolute CD4 [place] % CD4+ Lymphocyte CD4/CD8 Ratio % CD8+ Lymphocyte Absolute CD8 Count Hepatitis A Ab Total Positive H Hep Bs Antigen Negative Hep C Ab Diagnostic <0.1 HSV I IgG Ab 23.70 H HSV II Inhibition IgG 14.20 H HIV-1 RNA Quant <20 HIV-1 RNA (PCR) 09/12/18 09/12/18 09:25 09:25 Absolute CD3 Count 1320 % CD3+ Lymphocytes 88.0 H Absolute CD4 [place] 863 % CD4+ Lymphocyte 57.5 CD4/CD8 Ratio 1.81 % CD8+ Lymphocyte 31.7 Absolute CD8 Count 476 Hepatitis A Ab Total Hep Bs Antigen Hep C Ab Diagnostic HSV I IgG Ab HSV II Inhibition IgG HIV-1 RNA Quant HIV-1 RNA (PCR) <20 Constitutional: Yes: Well Nourished, Anxious, Other (mildly dehydrated) Eyes: Yes: WNL HENT: Yes: WNL, Normocephalic Neck: Yes: WNL Cardiovascular: Yes: WNL, Tachycardia (at the time of admission 8.30 PM 09/26/18) Lungs: Clear to auscultation Breast(s): Yes: WNL - Abdominal Exam/OB Fundal Height: 34 Number of Fetuses: Single Presentation: Vertex Contractions: Yes Regularity: Regular (2-5-6) Intensity: Mod/Strong Monitor Mode: External ( heart rate upto 160 on admission8.30 pM) Heart Rate (range): 150-160 Heart Rate Location: [facility] Category: I Accelerations: Uniform Decelerations: None - Vaginal Exam/OB Vaginal Bleediing: No Speculum Exam: No Dilatation (cm): 3-4 Effacement (%): 65% Amniotic Membrane Status: Intact Presentation: Vertex/Position Station: -2 - Physical Exam Musculoskeletal: Yes: WNL Extremities: Yes: WNL, Other (spider veins bilateral). No: Calf Tenderness Edema: LLE: 1+, RLE: 1+ Integumentary: Yes: Tattoos ...Motor Strength: WNL Psychiatric: Yes: WNL, Alert, Oriented - Labs Lab Results: CBC, BMP 09/26/18 21:00 09/26/18 21:00 Laboratory Tests 09/26/18 09/26/18 09/26/18 21:00 21:00 21:00 PT with INR 11.60 INR 0.98 PTT (Actin FS) 27.5 AST 24 ALT 17 Urine Protein Negative Urine Glucose (UA) Trace Urine Ketones Negative Urine Blood Negative Urine Nitrite Negative Urine Bilirubin Negative Urine Urobilinogen 0.2 Ur Leukocyte Esterase Trace Urine WBC (Auto) 1 Urine RBC (Auto) 0 Urine Casts (Auto) 1 U Epithel Cells (Auto) 2.0 Urine Bacteria (Auto) 15.6 Opiates Screen Methadone Screen Barbiturate Screen Phencyclidine Screen Ur Amphetamines Screen MDMA (Ecstasy) Screen Benzodiazepines Screen Cocaine Screen U Marijuana (THC) Screen 09/26/18 21:00 PT with INR INR PTT (Actin FS) AST ALT Urine Protein Urine Glucose (UA) Urine Ketones Urine Blood Urine Nitrite Urine Bilirubin Urine Urobilinogen Ur Leukocyte Esterase Urine WBC (Auto) Urine RBC (Auto) Urine Casts (Auto) U Epithel Cells (Auto) Urine Bacteria (Auto) Opiates Screen Negative Methadone Screen Negative Barbiturate Screen Negative Phencyclidine Screen Negative Ur Amphetamines Screen Negative MDMA (Ecstasy) Screen Negative Benzodiazepines Screen Negative Cocaine Screen Negative U Marijuana (THC) Screen Negative Laboratory Tests 09/12/18 16:00 TB Test (QFT) Negative Problem List - Problems (1) with 34 completed weeks gestation Code(s): Z3A.34 - 34 WEEKS GESTATION OF (2) labor in third trimester Code(s): O60.03 - LABOR WITHOUT DELIVERY, THIRD TRIMESTER (3) HIV disease affecting Code(s): O98.719 - HUMAN IMMUNODEF VIRUS DISEASE COMP , UNSP TRIMESTER Qualifiers: Trimester: third trimester Qualified Code(s): O98.713 - Human immunodeficiency virus [HIV] disease complicating , third trimester (4) Gestational diabetes, diet controlled Code(s): O24.410 - GESTATIONAL DIABETES MELLITUS IN , DIET CONTROLLED Qualifiers: Trimester: third trimester Qualified Code(s): O24.410 - Gestational diabetes mellitus in , diet controlled (5) Grand multipara in labor Code(s): O09.40 - SUPERVISION OF W GRAND MULTIPARITY, UNSP TRIMESTER Assessment/Plan 28 yrs , 34 wks gestation in early labor .( definite cervical changes seen since 09/14/18 exam ) Known Pos Hiv on ART Truvada & Tiadrienay during pregn, viral load undetectable < 20 copies , CD4/CD8 ratio 1.8 Plan since she is 3-4 cm dilated, i will not tocolyse her Let labor take it's own course trial vaginal delivery gbs prophylaxis with ampicillin pt presently not in favor of pain meds Bgm monitoring -( 09/26/18-- 141 at 19.21 hr 09/27/18 at 1.10hr 161 pt was given IV hydration in the beginning , UC frequency less Betamethasone 12.5 mg IM for lung maturity emerically was given 09/26/18 - at 21.30 hr t/c Dr Johnson, 09/12 labs notified from [facility], no need to do any hiv related blood work up . since pt is compliant with ART , viral load <20 copies, no need of additional ART during labor , confirmed with Pharmacy as per [facility] recommendation !.00 AM cx findings same 3-4 cm 70 % /vx -2 fhr cat 1 base line 130-140. uc 2-4 -6 min irregular , mild pt hungry requests for food
[2018-09-27 01:59] VITALS: BMI 35.7
--- NOTE | 2018-09-27 08:57 | PN ---
Progress Note (short form) - Note Progress Note: 28 yrs , 34 weeks GA , PTL , HiV pos rx Truvada & Tivicay , GDM uncontrolled Glucose Pt is not feeling uc as strong as before , infrequent 6-7 min apart, mild .Fhr 140-150 cat-1 she could sleep Repeat pelvic ex : S/A Cx 4 cm, post,70 % efface, vx -2/-1 .[place] , pelvis adequate Selected Entries 09/27/18 08:00 Temperature 98.4 F Pulse Rate 91 H Blood Pressure 70 Mean Laboratory Tests 09/27/18 09/27/18 09/27/18 01:11 05:11 08:34 POC Glucometer 161 202 153 Imp : labor is not progressed further since admission>12 hrs , if uc cease on it's own , she will receive 2 nd dose of Betamethasone at 9.30 PM today BGM are not under control, t/c I requested Dr Wallace for diabetes control , Rx Diet [address] Truvada & Tivicay HS Diabetes teaching for insulin to be initiated as per Dr Rodrigo Johnson called back she mention to control her BGM , Ct management for HIV , No further labs Plt count 116 , , will repeat cbc today I will transfer care to OB supervisor inspection room. Problem List - Problems (1) with 34 completed weeks gestation Code(s): Z3A.34 - 34 WEEKS GESTATION OF (2) labor in third trimester Code(s): O60.03 - LABOR WITHOUT DELIVERY, THIRD TRIMESTER (3) HIV disease affecting Code(s): O98.719 - HUMAN IMMUNODEF VIRUS DISEASE COMP , UNSP TRIMESTER Qualifiers: Trimester: third trimester Qualified Code(s): O98.713 - Human immunodeficiency virus [HIV] disease complicating , third trimester (4) Gestational diabetes, diet controlled Code(s): O24.410 - GESTATIONAL DIABETES MELLITUS IN , DIET CONTROLLED Qualifiers: Trimester: third trimester Qualified Code(s): O24.410 - Gestational diabetes mellitus in , diet controlled (5) Grand multipara in labor Code(s): O09.40 - SUPERVISION OF W GRAND MULTIPARITY, UNSP TRIMESTER
[2018-09-27] MEDS ORDERED: DOLUTEGRAVIR SODIUM 50 MG TABLET (NON-FORMULARY) PO SCH (10:00)
[2018-09-27] MEDS ORDERED: PRENATAL VITAMINS W/ FOLIC ACID TABLET (FP) PO SCH (10:00)
--- NOTE | 2018-09-27 12:11 | CONSULT ---
Consult Consult Specialty:: Endocrine Referred by:: Reason for Consultation:: gestational diabetes mellitus - History of Present Illness Chief Complaint: high sugars History of Present Illness: 28 yrs pmh hiv on ART since 2014,, h/f, onset LP since ,3.00 PM 09/26/18 . pt was seen at [facility] in [place] for labor evaluation, she was noted to be 3-4 cm, she signed out AMA and presented for evaluation. patient she was prescribed insulin at [facility] for gestation diabetes but did not take it, she is afraid of injection and feels it may cause her pain to take.she denies cp ,nausea vomiting or fever. 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 after that pt states she had no problem) Pulmonary: No: Asthma, Bronchitis Gastrointestinal: Yes: Constipation Renal/: Yes: UTI (admitted for pyelo during in 2017 pregn 2018 pregn h/o UTI during early pregn treated 09/09/18 no growth, 09/14/18 uc/s contaminated , mixed jazmin) ...LMP: 02/10/18 Infectious Disease: Yes: HIV (2018 RX Po Tivicay 50 mg, rx Truvada 300 mg po od , viral load undetectable <20 copies), STD's (h/o gonorrhea 01/2018 & 02/[address] neg) Psych: No: Addictions, Anxiety, Bipolar, Depression, Panic, Psychosis, Schizophrenia, Other - Past Surgical History Additional Surgical History: left Bunionectomy - Alcohol/Substance Use Hx Alcohol Use: No History of Substance Use: reports: None - Smoking History Smoking history: Former smoker Have you smoked in the past 12 months: No Aproximately how many cigarettes per day: 2 If you are a former smoker, when did you quit?: PATIENT STATES SHE ONLY STARTED SMOKING AGAIN THIS WEEK. - Social History History of Recent Travel: No Home Medications - Allergies Allergies/Adverse Reactions: Allergies Allergy/AdvReac Type Severity Reaction Status Date / Time rilpivirine [From Complera] AdvReac Severe Low Blood Verified 09/27/18 06:24 Pressure - Home Medications Home Medications: Ambulatory Orders Dolutegravir Sodium [Tivicay] 50 mg PO ONCE 09/27/18 Emtricitabine/Tenofovir (Tdf) [Truvada 200 mg-300 mg Tablet] 1 each PO ONCE Vitamins (Sjr) - 1 tab PO DAILY 09/27/18 Family Disease History - Family Disease History Family Disease History: Diabetes: Grandparent (mat gma/gpa with dm/htn; pat side unk), Mother (a&w on meds for htn, dm), Heart Disease: Grandparent, Mother , Other: Grandparent, Father (a&w also with psoriasis), Mother, Brother (2 a&w) , Sister (4 a&w), Son (0), Daughter (4) Review of Systems - Review of Systems Constitutional: reports: No Symptoms Eyes: reports: No Symptoms HENT: reports: No Symptoms Neck: reports: No Symptoms Cardiovascular: reports: No Symptoms Respiratory: reports: No Symptoms Gastrointestinal: reports: No Symptoms Genitourinary: reports: No Symptoms Breasts: reports: No Symptoms Reported Musculoskeletal: reports: No Symptoms Endocrine: reports: Unexplained Weight Gain Physical Exam Vital Signs: Vital Signs Temperature 98.4 F 09/27/18 10:00 Pulse Rate 109 H 09/27/18 11:00 Respiratory Rate 20 09/27/18 11:00 Blood Pressure 121/50 L 09/27/18 11:00 O2 Sat by Pulse Oximetry (%) Constitutional: Yes: Calm Eyes: Yes: EOM Intact HENT: Yes: Normocephalic Neck: Yes: Trachea Midline Cardiovascular: Yes: Regular Rate and Rhythm Respiratory: Yes: CTA Bilaterally Gastrointestinal: Yes: Normal Bowel Sounds ...Rectal Exam: Yes: Deferred Renal/: Yes: WNL Musculoskeletal: Yes: WNL Extremities: Yes: WNL Edema: No Neurological: Yes: Alert, Oriented Labs: CBC, BMP 09/26/18 21:00 09/26/18 21:00 Problem List - Problems (1) Gestational diabetes, diet controlled Code(s): O24.410 - GESTATIONAL DIABETES MELLITUS IN , DIET CONTROLLED Qualifiers: Trimester: third trimester Qualified Code(s): O24.410 - Gestational diabetes mellitus in , diet controlled (2) Grand multipara in labor Code(s): O09.40 - SUPERVISION OF W GRAND MULTIPARITY, UNSP TRIMESTER (3) with 34 completed weeks gestation Code(s): Z3A.34 - 34 WEEKS GESTATION OF (4) labor in third trimester Code(s): O60.03 - LABOR WITHOUT DELIVERY, THIRD TRIMESTER Assessment/Plan Current Active Problems Gestational diabetes, diet controlled (Acute) Grand multipara in labor (Acute) with 34 completed weeks gestation (Acute) labor in third trimester (Acute) Abnormal Lab Results 09/26/18 09/26/18 21:00 21:00 Plt Count 116 L MPV 11.5 H Chloride 108 H BUN 5.9 L Creatinine 0.5 L Random Glucose 141 H Alkaline Phosphatase 143 H Total Protein 6.3 L Albumin 2.8 L Laboratory Results - last 24 hr 09/26/18 09/26/18 09/26/18 21:00 21:00 21:00 WBC 7.4 RBC 4.42 Hgb 12.5 Hct 37.8 MCV 85.5 MCH 28.2 MCHC 33.0 RDW 15.2 Plt Count 116 L MPV 11.5 H Absolute Neuts (auto) 4.3 Neutrophils % 57.9 Lymphocytes % 31.6 D Monocytes % 8.0 Eosinophils % 2.1 Basophils % 0.4 Nucleated RBC % 0 Platelet Estimate Slt decrease Platelet Comment PT with INR 11.60 INR 0.98 PTT (Actin FS) 27.5 Sodium Potassium Chloride Carbon Dioxide Anion Gap BUN Creatinine Est GFR (CKD-EPI)AfAm Est GFR (CKD-EPI)NonAf POC Glucometer Random Glucose Calcium Total Bilirubin AST ALT Alkaline Phosphatase Total Protein Albumin Urine Color Urine Appearance Urine pH Ur Specific [place] Urine Protein Urine Glucose (UA) Urine Ketones Urine Blood Urine Nitrite Urine Bilirubin Urine Urobilinogen Ur Leukocyte Esterase Urine WBC (Auto) Urine RBC (Auto) Urine Casts (Auto) U Epithel Cells (Auto) Urine Bacteria (Auto) Opiates Screen Methadone Screen Barbiturate Screen Phencyclidine Screen Ur Amphetamines Screen MDMA (Ecstasy) Screen Benzodiazepines Screen Cocaine Screen U Marijuana (THC) Screen RPR Titer Nonreactive Blood Type Antibody Screen 09/26/18 09/26/18 09/26/18 21:00 21:00 21:00 WBC RBC Hgb Hct MCV MCH MCHC RDW Plt Count MPV Absolute Neuts (auto) Neutrophils % Lymphocytes % Monocytes % Eosinophils % Basophils % Nucleated RBC % Platelet Estimate Platelet Comment PT with INR INR PTT (Actin FS) Sodium 141 Potassium 4.1 Chloride 108 H Carbon Dioxide 24 Anion Gap 9 BUN 5.9 L Creatinine 0.5 L Est GFR (CKD-EPI)AfAm 154.81 Est GFR (CKD-EPI)NonAf 133.57 POC Glucometer Random Glucose 141 H Calcium 8.7 Total Bilirubin 0.2 AST 24 ALT 17 Alkaline Phosphatase 143 H Total Protein 6.3 L Albumin 2.8 L Urine Color Yellow Urine Appearance Clear Urine pH 7.5 Ur Specific [place] 1.012 Urine Protein Negative Urine Glucose (UA) Trace Urine Ketones Negative Urine Blood Negative Urine Nitrite Negative Urine Bilirubin Negative Urine Urobilinogen 0.2 Ur Leukocyte Esterase Trace Urine WBC (Auto) 1 Urine RBC (Auto) 0 Urine Casts (Auto) 1 U Epithel Cells (Auto) 2.0 Urine Bacteria (Auto) 15.6 Opiates Screen Methadone Screen Barbiturate Screen Phencyclidine Screen Ur Amphetamines Screen MDMA (Ecstasy) Screen Benzodiazepines Screen Cocaine Screen U Marijuana (THC) Screen RPR Titer Blood Type B POSITIVE Antibody Screen Negative 09/26/18 09/27/18 09/27/18 21:00 01:11 05:11 WBC RBC Hgb Hct MCV MCH MCHC RDW Plt Count MPV Absolute Neuts (auto) Neutrophils % Lymphocytes % Monocytes % Eosinophils % Basophils % Nucleated RBC % Platelet Estimate Platelet Comment PT with INR INR PTT (Actin FS) Sodium Potassium Chloride Carbon Dioxide Anion Gap BUN Creatinine Est GFR (CKD-EPI)AfAm Est GFR (CKD-EPI)NonAf POC Glucometer 161 202 Random Glucose Calcium Total Bilirubin AST ALT Alkaline Phosphatase Total Protein Albumin Urine Color Urine Appearance Urine pH Ur Specific [place] Urine Protein Urine Glucose (UA) Urine Ketones Urine Blood Urine Nitrite Urine Bilirubin Urine Urobilinogen Ur Leukocyte Esterase Urine WBC (Auto) Urine RBC (Auto) Urine Casts (Auto) U Epithel Cells (Auto) Urine Bacteria (Auto) Opiates Screen Negative Methadone Screen Negative Barbiturate Screen Negative Phencyclidine Screen Negative Ur Amphetamines Screen Negative MDMA (Ecstasy) Screen Negative Benzodiazepines Screen Negative Cocaine Screen Negative U Marijuana (THC) Screen Negative RPR Titer Blood Type Antibody Screen 09/27/18 08:34 WBC RBC Hgb Hct MCV MCH MCHC RDW Plt Count MPV Absolute Neuts (auto) Neutrophils % Lymphocytes % Monocytes % Eosinophils % Basophils % Nucleated RBC % Platelet Estimate Platelet Comment PT with INR INR PTT (Actin FS) Sodium Potassium Chloride Carbon Dioxide Anion Gap BUN Creatinine Est GFR (CKD-EPI)AfAm Est GFR (CKD-EPI)NonAf POC Glucometer 153 Random Glucose Calcium Total Bilirubin AST ALT Alkaline Phosphatase Total Protein Albumin Urine Color Urine Appearance Urine pH Ur Specific [place] Urine Protein Urine Glucose (UA) Urine Ketones Urine Blood Urine Nitrite Urine Bilirubin Urine Urobilinogen Ur Leukocyte Esterase Urine WBC (Auto) Urine RBC (Auto) Urine Casts (Auto) U Epithel Cells (Auto) Urine Bacteria (Auto) Opiates Screen Methadone Screen Barbiturate Screen Phencyclidine Screen Ur Amphetamines Screen MDMA (Ecstasy) Screen Benzodiazepines Screen Cocaine Screen U Marijuana (THC) Screen RPR Titer Blood Type Antibody Screen Laboratory Tests 09/26/18 09/27/18 09/27/18 21:00 01:11 05:11 Sodium 141 Potassium 4.1 Chloride 108 H Carbon Dioxide 24 Anion Gap 9 BUN 5.9 L Creatinine 0.5 L POC Glucometer 161 202 Random Glucose 141 H 09/27/18 08:34 Sodium Potassium Chloride Carbon Dioxide Anion Gap BUN Creatinine POC Glucometer 153 Random Glucose plan: diet nutrition consult diabetic teaching injection use bg acmeals hs levemir 10 units am if sugar over 100 mg/dl ck hba1c
[2018-09-27] MEDS ORDERED: AMPICILLIN - 1 GM in SODIUM CHLORIDE 100 ML IVPB SCH (15:00)
[2018-09-27 15:16] VITALS: TEMP 98.4
[2018-09-27 15:17] VITALS: BP 108/54; PULSE 100
--- NOTE | 2018-09-27 16:24 | PN ---
Progress Note (short form) - Note Progress Note: Pt is requesting discharge, has tried to self discontinue her IV Wants to leave and come back for her second dose of BMZ Importance stressed about compliance with follow up and FS monitoring Will discharge home, aware of PTL signs and reasons to return earlier than for her second BMZ dose Karissa Marquis MD
[2018-09-27] MEDS ORDERED: EMTRICITABINE 200MG/TENOFOVIR 300MG PO SCH (22:00)
--- NOTE | 2018-09-28 10:07 | DS ---
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: Vital Signs Temperature 98.4 F 09/27/18 14:00 Pulse Rate 100 H 09/27/18 15:00 Respiratory Rate 20 09/27/18 15:00 Blood Pressure 108/54 L 09/27/18 15:00 O2 Sat by Pulse Oximetry (%) Constitutional: Yes: Well Nourished Eyes: Yes: WNL HENT: Yes: WNL Neck: Yes: WNL Cardiovascular: Yes: WNL Respiratory: Yes: WNL Gastrointestinal: Yes: WNL Vaginal Exam: Yes: Other (cx 4 cm/65%/Mi VX -2/-1 , [place] , pelvis adequate) Uterus: Yes: Other (pt 34 weeks , cephalic presentation , fhr 130-140 bpm no cva tenderness UC 6-7 min mild) Breast(s): Yes: WNL Integumentary: Yes: WNL Neurological: Yes: WNL ...Motor Strength: WNL Psychiatric: Yes: WNL, Alert, Oriented, Other (pt not compliant with orders) Labs: CBC, BMP 09/26/18 21:00 09/26/18 21:00 Discharge Summary Reason For Visit: LABOR- not delievered , 34 weeks in labor. HIV positive on ART GDM not well controlled with diet grand multipara dehydration Procedures: Principal: IV hydration. Rest. Antibiotics ( Ampicillin ) Prophylaxis. Betamethasone InJ. ART meds Truvada & Tivicay. Monitoring Other Procedures: ID consult. 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 [employer] Education Hospital Course: Rest & IV hydration , gradulally uc slowed down after 10-12 hrs pt did not wait for 2 ND dose of betamethasone sceduled to be given at 9.30 PM she left at 4.30 pm 09/27/18 Condition: Stable - Instructions Diet, Activity, Other Instructions: Follow up tonight for your second dose of Betamethasone Follow up on 10/[address] Marquis Stay Hydrated Continue checking your sugars four times daily Referrals: Merry Marquis MD [Staff Physician] - Disposition: HOME - Home Medications Comprehensive Discharge Medication List: Ambulatory Orders Dolutegravir Sodium [Tivicay] 50 mg PO ONCE 09/27/18 Emtricitabine/Tenofovir (Tdf) [Truvada 200 mg-300 mg Tablet] 1 each PO ONCE Vitamins (Sjr) - 1 tab PO DAILY 09/27/18
== END 2018-09-27 16:25 | disposition home or self-care (01) | DRG 566 ==
LOC: JDEL 19:20 → JLDR 20:50
PROVIDERS: ADMIT Obstetrics & Gynecology; ATTEND Obstetrics & Gynecology
DX: O24.410 Gestational diabetes mellitus in pregnancy, diet controlled (principal); O60.03 Preterm labor without delivery, third trimester; O98.713 Human immunodeficiency virus [HIV] disease complicating pregnancy, third trimester; E86.0 Dehydration; O26.893 Other specified pregnancy related conditions, third trimester; Z21 Asymptomatic human immunodeficiency virus [HIV] infection status; Z3A.34 34 weeks gestation of pregnancy; Z87.891 Personal history of nicotine dependence; Z91.14 Patient's other noncompliance with medication regimen
CPT/HCPCS: 36415; 80053; 80307; 81003; 82962; 83036; 84378; 85025; 85610; 85730; 86593; 86850; 86900; 86901; 87077; 87086; 96372

== ENCOUNTER 2018-09-28 11:22 | Emergency (ER) | payer OTHER | END 2018-09-29 18:45 | disposition home or self-care (01) | LOC: JER 09-29 18:45 ==

== ENCOUNTER 2018-10-12 08:53 | Observation (INO) | payer OTHER | END 2018-10-12 21:12 | disposition home or self-care (01) | LOC: JDEL 08:53 → JLDR 12:55 ==

== ENCOUNTER 2018-10-17 09:45 | Inpatient (IN) | payer OTHER ==
[2018-10-17 11:56] VITALS: BMI 36.5
[2018-10-17 12:15] LABS: BASO % 0.3 % (0-2.0); EOS % 1.5 % (0-4.5); LYMPH % 31.5 % (8-40); MCH 27.1 pg (25.7-33.7); MCHC 32.5 g/dl (32.0-36.0); MEAN CELL VOLUME 83.4 fl (80-96); MEAN PLT VOLUME 11.6 fl (7.5-11.1); MONO % 6.5 % (3.8-10.2); NEUT % 60.2 % (42.8-82.8); PLATELET COUNT 113 K/MM3 (134-434); RBC 4.44 M/mm3 (3.60-5.2); RDW 15.2 % (11.6-15.6); WHITE BLOOD COUNT 7.7 K/mm3 (4.0-10.0)
[2018-10-17 12:26] LABS: PROTHROMBIN TIME (PATIENT) 11.8 SEC (9.7-13.0)
[2018-10-17 12:29] LABS: ACTIVATED PTT 26.5 SECONDS (25.2-36.5)
[2018-10-17] MEDS ORDERED: OXYTOCIN 30 UNITS in 0.9% NS 30 UNIT/500 ML INFUS.BAG IVPB ONE (12:29)
[2018-10-17 12:45] LABS: BLOOD UREA NITROGEN 9.3 mg/dL (7-18); CALCIUM 8.8 mg/dL (8.5-10.1); CREATININE 0.6 mg/dL (0.55-1.3); POTASSIUM 4.3 mmol/L (3.5-5.1)
--- NOTE | 2018-10-17 13:00 | HP ---
Past Medical History - Primary Care Physician PCP:: Alexandre Pruett - Admission Chief Complaint: 37 weeks, positve HIV , GDM uncontrolled. grand multiparity , labor History of Present Illness: 28 yo f g 9 [id number] edc by liza 11/07/17 c/o contraction,hx of GDM uncontrolled, non compliant referred by [facility] for delivery as well , cx 5 cm 80 vx -2 mi, bulging , fhr cat 1, irregular contraction History Source: Patient Limitations to Obtaining History: No Limitations - Past Medical History Cardiovascular: Yes: Other (h/o palpitations end of August, she was seen in ER advice admission , cardiac consult , she signed out AMA. after that pt states she had no problem) Gastrointestinal: Yes: Constipation Renal/: Yes: UTI (admitted for pyelo during in 2017 pregn 2018 pregn h/o UTI during early pregn treated 09/09/18 no growth, 09/14/18 uc/s contaminated , mixed jazmin, 09/26/18 c/s mixed jazmin) ...: 9 ...Para: 4 ...Term: 4 ...: 0 ...Spon : 3 ...Induced : 1 ...Multiple Gestation: 0 ...LMP: 01/25/18 ... Weeks Gestation by Dates: 37 ...EDC by Dates: 11/07/18 ...[facility] Heme/Onc: Yes: Anemia Infectious Disease: Yes: HIV (2018 RX Po Tivicay 50 mg, rx Truvada 300 mg po od , viral load undetectable <20 copies), STD's (h/o gonorrhea 01/2018 & 02/[address] neg) - Past Surgical History Past Surgical History: Yes: None (bunionectomy TOP four times) Hx Myomectomy: No Hx Transabdominal Cerclage: No - Smoking History Have you smoked in the past 12 months: No Aproximately how many cigarettes per day: 2 If you are a former smoker, when did you quit?: PATIENT STATES SHE ONLY STARTED SMOKING AGAIN THIS WEEK. - Alcohol/Substance Use Hx Alcohol Use: No History of Substance Use: reports: None - Social History History of Recent Travel: No Home Medications - Allergies Allergies/Adverse Reactions: Allergies Allergy/AdvReac Type Severity Reaction Status Date / Time rilpivirine [From Complera] AdvReac Severe Low Blood Verified 10/12/18 09:11 Pressure - Home Medications Home Medications: Ambulatory Orders Dolutegravir Sodium [Tivicay] 50 mg PO ONCE 09/27/18 Emtricitabine/Tenofovir (Tdf) [Truvada 200 mg-300 mg Tablet] 1 each PO ONCE Vitamins (Sjr) - 1 tab PO DAILY 09/27/18 Family Disease History - Family Disease History Family Disease History: Diabetes: Grandparent (mat gma/gpa with dm/htn; pat side unk), Mother (a&w on meds for htn, dm), Heart Disease: Grandparent, Mother , Other: Grandparent, Father (a&w also with psoriasis), Mother, Brother (2 a&w) , Sister (4 a&w), Son (0), Daughter (4) Review of Systems - Review of Systems Constitutional: reports: No Symptoms Eyes: reports: No Symptoms HENT: reports: No Symptoms Neck: reports: No Symptoms Cardiovascular: reports: No Symptoms Respiratory: reports: No Symptoms Gastrointestinal: reports: No Symptoms Genitourinary: reports: No Symptoms Breasts: reports: No Symptoms Reported Musculoskeletal: reports: No Symptoms Integumentary: reports: No Symptoms Neurological: reports: No Symptoms Endocrine: reports: No Symptoms Hematology/Lymphatic: reports: No Symptoms Psychiatric: reports: No Symptoms Physical Exam - Maternity Vital Signs: Vital Signs Temperature 98.4 F 10/17/18 11:29 Pulse Rate 90 10/17/18 11:29 Respiratory Rate 20 10/17/18 11:29 Blood Pressure 122/79 10/17/18 11:29 O2 Sat by Pulse Oximetry (%) Constitutional: Yes: Well Nourished, No Distress, Calm, Obese Eyes: Yes: WNL, Conjunctiva Clear, EOM Intact HENT: Yes: WNL, Atraumatic, Normocephalic Neck: Yes: WNL, Supple, Trachea Midline Cardiovascular: Yes: WNL, Regular Rate and Rhythm Breast(s): Yes: WNL - Abdominal Exam/OB Fundal Height: 40 Number of Fetuses: Single Presentation: Vertex Contractions: Yes Regularity: Irregular Intensity: Mod/Strong Monitor Mode: External Heart Rate Location: [facility] Category: I Accelerations: Uniform Decelerations: None - Vaginal Exam/OB Vaginal Bleediing: No Speculum Exam: No Dilatation (cm): 5 cm Effacement (%): 89 Amniotic Membrane Status: Bulging Presentation: Vertex/Position Station: -2 - Physical Exam Musculoskeletal: Yes: WNL Extremities: Yes: WNL Edema: Yes Edema: LLE: Trace, RLE: Trace Deep Tendon Reflex Grade: Hyperactive,very brisk +4 Psychiatric: Yes: WNL - Labs Lab Results: CBC, BMP 10/17/18 11:55 10/17/18 11:55 Hemorrhage Risk Assessment - Risk Factors Medium Risk Factors: Yes: Multiple gestation Risk Score: 1 Risk Level: Medium Risk Problem List - Problems (1) at 37 weeks gestation or greater with abnormal testing Code(s): [id number] - (2) HIV (human immunodeficiency virus) risk factors complicating Code(s): O09.899 - SUPERVISION OF OTHER HIGH RISK PREGNANCIES, UNSP TRIMESTER Qualifiers: Trimester: third trimester Qualified Code(s): O09.893 - Supervision of other high risk pregnancies, third trimester (3) Gestational diabetes mellitus (GDM) affecting fourth Code(s): O24.419 - GESTATIONAL DIABETES MELLITUS IN , UNSP CONTROL (4) Grand multipara in labor Code(s): O09.40 - SUPERVISION OF W GRAND MULTIPARITY, UNSP TRIMESTER Qualifiers: Trimester: third trimester Qualified Code(s): O09.43 - Supervision of with grand multiparity, third trimester (5) Obesity affecting in third trimester Code(s): O99.213 - OBESITY COMPLICATING , THIRD TRIMESTER (6) Labor established Code(s): HEX3052 - Assessment/Plan admit FHM pain management pitocin stimulation RBA discussed BGM
[2018-10-17] MEDS ORDERED: PROMETHAZINE HCL 25 MG/1 ML VIAL IVPUSH ONE (13:08)
[2018-10-17] MEDS ORDERED: BUTORPHANOL TARTRATE 1 MG/ML VIAL IVPUSH ONE (13:08)
[2018-10-17] MEDS ORDERED: ELECTROLYTE-148 SOLN 1,000 ML IV SCH (13:15)
[2018-10-17] MEDS ORDERED: OXYTOCIN 30 UNITS in 0.9% NS 30 UNIT/500 ML INFUS.BAG IVPB SCH (13:15)
[2018-10-17] MEDS ORDERED: BUTORPHANOL TARTRATE 1 MG/ML VIAL ONE ×2 (15:35→15:36)
[2018-10-17] MEDS ORDERED: PROMETHAZINE HCL 25 MG/1 ML VIAL ONE (15:36)
[2018-10-17] MEDS ORDERED: OXYTOCIN 20 UNITS in 0.9% NS 20 UNIT/1,000 ML INFUS.BAG IV ONE (16:02)
[2018-10-17] MEDS ORDERED: LIDOCAINE HCL 1% PRESERVATIVE FREE - 30ML VIAL ONE (16:02)
[2018-10-17] MEDS: OXYTOCIN 20 UNITS in 0.9% NS 20 UNIT/1,000 ML INFUS.BAG IV SCH (17:05)
[2018-10-17] MEDS ORDERED: METHYLERGONOVINE MALEATE 0.2 MG/1 ML AMP IM PRN (18:24)
[2018-10-17] MEDS ORDERED: BENZOCAINE 28 GM HEMORRHOIDAL OINTMENT TP PRN (18:24)
[2018-10-17] MEDS ORDERED: BISACODYL 10 MG SUPP.RECT RC PRN (18:24)
[2018-10-17] MEDS ORDERED: BENZOCAINE 20% 57 GM BOTTLE TP PRN (18:24)
[2018-10-17] MEDS ORDERED: WITCH HAZEL 50% (TUCKS) 40 PAD/JAR PAD TP PRN (18:24)
[2018-10-17] MEDS: IBUPROFEN 600 MG TABLET (FP) PO PRN (20:08)
[2018-10-17] MEDS: ACETAMINOPHEN 325 MG TABLET (FP) PO PRN (20:08)
[2018-10-17] MEDS: FERROUS SO4 325 MG TABLET (FP) PO SCH (22:12)
[2018-10-18] MEDS: OXYTOCIN 20 UNITS in 0.9% NS 20 UNIT/1,000 ML INFUS.BAG IV SCH (01:00)
[2018-10-18] MEDS: ACETAMINOPHEN 325 MG TABLET (FP) PO PRN ×2 (02:15→18:13)
[2018-10-18] MEDS: IBUPROFEN 600 MG TABLET (FP) PO PRN ×2 (02:16→18:13)
--- NOTE | 2018-10-18 07:31 | PN ---
Post Progress Note - Subjective Subjective: c/o cramps, excessive bleeding Post Day: 1 Type of Delivery: Vital Signs: Vital Signs Temperature 98.6 F 10/18/18 06:00 Pulse Rate 74 10/18/18 06:00 Respiratory Rate 18 10/18/18 06:00 Blood Pressure 110/71 10/18/18 06:00 O2 Sat by Pulse Oximetry (%) 98 10/17/18 18:10 Breast Exam: Yes: Soft, Other (bottle feeding ). No: Engorged Uterus: Yes: Fundus Firm, Fundus above umbilicus, Non-tender Lochia: Yes: Rubra Lochia, amount: Moderate Extremities: Yes: Calves non-tender Perineum: Yes: Intact Activity: Ambulating - Labs Labs: CBC WBC 7.7 K/mm3 (4.0-10.0) 10/17/18 11:55 RBC 4.44 M/mm3 (3.60-5.2) 10/17/18 11:55 Hgb 12.0 GM/dL (10.7-15.3) 10/17/18 11:55 Hct 37.0 % (32.4-45.2) 10/17/18 11:55 MCV 83.4 fl (80-96) 10/17/18 11:55 MCH 27.1 pg (25.7-33.7) 10/17/18 11:55 MCHC 32.5 g/dl (32.0-36.0) 10/17/18 11:55 RDW 15.2 % (11.6-15.6) 10/17/18 11:55 Plt Count 113 K/MM3 (134-434) L 10/17/18 11:55 MPV 11.6 fl (7.5-11.1) H 10/17/18 11:55 Absolute Neuts (auto) 4.6 K/mm3 (1.5-8.0) 10/17/18 11:55 Neutrophils % 60.2 % (42.8-82.8) 10/17/18 11:55 Lymphocytes % 31.5 % (8-40) D 10/17/18 11:55 Monocytes % 6.5 % (3.8-10.2) 10/17/18 11:55 Eosinophils % 1.5 % (0-4.5) 10/17/18 11:55 Basophils % 0.3 % (0-2.0) 10/17/18 11:55 Nucleated RBC % 0 % (0-0) 10/17/18 11:55 Laboratory Tests 10/17/18 10/18/18 20:13 06:31 POC Glucometer 108 106 Problem List - Problems (1) Vaginal delivery Code(s): O80 - ENCOUNTER FOR FULL-TERM UNCOMPLICATED DELIVERY (2) Gestational diabetes mellitus (GDM) affecting fourth Code(s): O24.419 - GESTATIONAL DIABETES MELLITUS IN , UNSP CONTROL (3) HIV (human immunodeficiency virus) risk factors complicating Code(s): O09.899 - SUPERVISION OF OTHER HIGH RISK PREGNANCIES, UNSP TRIMESTER Qualifiers: Trimester: third trimester Qualified Code(s): O09.893 - Supervision of other high risk pregnancies, third trimester (4) Encounter for visit Code(s): Z39.2 - ENCOUNTER FOR ROUTINE FOLLOW-UP Assessment/Plan s/p vaginal delivery, GDM diet controlled , antiviral meds for Pos HIV , viral load undetctable Plan ct pp care ct antiviral meds Truvada & Tivicay once daily pp cbc pending
[2018-10-18 07:44] LABS: BASO % 0.2 % (0-2.0); EOS % 1.4 % (0-4.5); HEMATOCRIT 35.6 % (32.4-45.2); HEMOGLOBIN 11.6 GM/dL (10.7-15.3); LYMPH % 33.5 % (8-40); MCH 27.3 pg (25.7-33.7); MCHC 32.5 g/dl (32.0-36.0); MEAN PLT VOLUME 12.2 fl (7.5-11.1); MONO % 6.1 % (3.8-10.2); NEUT % 58.8 % (42.8-82.8); PLATELET COUNT 105 K/MM3 (134-434); RBC 4.24 M/mm3 (3.60-5.2); RDW 15.2 % (11.6-15.6); WHITE BLOOD COUNT 8.1 K/mm3 (4.0-10.0)
[2018-10-18] MEDS: FERROUS SO4 325 MG TABLET (FP) PO SCH ×2 (09:50→21:11)
[2018-10-18] MEDS: DOLUTEGRAVIR SODIUM 50 MG TABLET (NON-FORMULARY) PO SCH (09:50)
[2018-10-18] MEDS: PRENATAL VITAMINS W/ FOLIC ACID TABLET (FP) PO SCH (09:50)
[2018-10-18] MEDS: TENOFOVIR DISOPROXIL FUMARATE 300 MG TABLET PO SCH ×2 (09:50→12:25)
[2018-10-18] MEDS: EMTRICITABINE 200MG/TENOFOVIR 300MG PO SCH (13:22)
[2018-10-18] MEDS ORDERED: SENNOSIDES/DOCUSATE COMBO (SENNA PLUS) TABLET (UD) PO PRN (22:00)
--- NOTE | 2018-10-19 08:04 | DS ---
Physical Examination Vital Signs: Vital Signs Temperature 98.4 F 10/18/18 21:08 Pulse Rate 74 10/18/18 21:08 Respiratory Rate 20 10/18/18 21:08 Blood Pressure 130/92 10/18/18 21:08 O2 Sat by Pulse Oximetry (%) 98 10/17/18 18:10 Constitutional: Yes: Calm HENT: Yes: Atraumatic Neck: Yes: Supple Cardiovascular: Yes: Regular Rate and Rhythm Respiratory: Yes: Regular Gastrointestinal: Yes: Soft (fundus is firm) ...Rectal Exam: Yes: Deferred Breast(s): Yes: Other (deferred) Musculoskeletal: Yes: WNL Extremities: Yes: WNL Edema: No Integumentary: Yes: WNL Neurological: Yes: Alert, Oriented ...Motor Strength: WNL Psychiatric: Yes: Alert, Oriented Labs: CBC, BMP 10/18/18 07:00 10/17/18 11:55 Discharge Summary Reason For Visit: INDUCTION OF LABOR Current Active Problems Gestational diabetes mellitus (GDM) affecting fourth (Acute) Grand multipara in labor (Acute) HIV (human immunodeficiency virus) risk factors complicating (Acute) Labor established (Acute) Obesity affecting in third trimester (Acute) at 37 weeks gestation or greater with abnormal testing ( Acute) Procedures: Principal: Hospital Course: Uncomplicated delivery and PP recovery. Baby is being monitor in NICU. Patient seen and evaluated on day of discharge and cleared for discharge Condition: Stable - Instructions Diet, Activity, Other Instructions: Please return to regular diet and activity as tolerated. Follow up in 6-8 weeks for PP visit. Call MD with any questions or concerns Referrals: Alexandre Pruett MD [Staff Physician] - Disposition: HOME - Home Medications Comprehensive Discharge Medication List: Ambulatory Orders Dolutegravir Sodium [Tivicay] 50 mg PO ONCE 09/27/18 Emtricitabine/Tenofovir (Tdf) [Truvada 200 mg-300 mg Tablet] 1 each PO ONCE Vitamins (Sjr) - 1 tab PO DAILY 09/27/18
[2018-10-19] MEDS: DOLUTEGRAVIR SODIUM 50 MG TABLET (NON-FORMULARY) PO SCH (09:36)
[2018-10-19] MEDS: EMTRICITABINE 200MG/TENOFOVIR 300MG PO SCH (09:36)
[2018-10-19] MEDS: FERROUS SO4 325 MG TABLET (FP) PO SCH (09:36)
[2018-10-19] MEDS: PRENATAL VITAMINS W/ FOLIC ACID TABLET (FP) PO SCH (09:36)
[2018-10-19 12:06] VITALS: BP 129/83; PULSE 87; TEMP 98.3
== END 2018-10-19 12:50 | disposition home or self-care (01) | DRG 560 ==
LOC: JDEL 09:45 → JLDR 11:10 → J3W 19:45
PROVIDERS: ADMIT Obstetrics & Gynecology; ATTEND Obstetrics & Gynecology
PROC: 10E0XZZ Delivery of Products of Conception, External Approach (ICD-10-PCS; principal; 2018-10-17)
DX: O24.420 Gestational diabetes mellitus in childbirth, diet controlled (principal); O98.72 Human immunodeficiency virus [HIV] disease complicating childbirth; Z21 Asymptomatic human immunodeficiency virus [HIV] infection status; O99.214 Obesity complicating childbirth; Z3A.37 37 weeks gestation of pregnancy; Z37.0 Single live birth
CPT/HCPCS: 36415; 36600; 59025; 59409; 80048; 82803; 82962; 85025; 85610; 85730; 86593; 86850; 86900; 86901

== ENCOUNTER 2019-12-19 16:15 | Emergency (ER) | payer OTHER ==
--- NOTE | 2019-12-19 16:27 | PDOC ---
Rapid Medical Evaluation Chief Complaint: Urinary Problem Time Seen by Provider: 12/19/19 16:23 Medical Evaluation: Allergies Allergy/AdvReac Type Severity Reaction Status Date / Time rilpivirine [From Complera] AdvReac Severe Low Blood Verified 10/12/18 09:11 Pressure 12/19/19 16:25 CC: urinary freq with LBP, hx of UTI, no other complaints Exam: VSS, no cva tenderness Plan: urine Discharge Disposition - Diagnosis Dysuria - Referrals - Patient Instructions - Post Discharge Activity
[2019-12-19 16:28] VITALS: BP 122/69; PULSE 83; TEMP 98.2; BMI 30.2
--- OUTSIDE RECORDS SUMMARY | 2019-12-19 16:44 | XMS ---
:1990 [facility] Providers Name Role Phone ED STAFF PHYSICIAN, STAFF Unavailable Unavailable GARRETT BONNER Unavailable Unavailable Re-disclosure Warning The records that you are about to access may contain information from federally- assisted alcohol or drug abuse programs. If such information is present, then the following federally mandated warning applies: This information has been disclosed to you from records protected by federal confidentiality rules (42 CFR part 2). The federal rules prohibit you from making any further disclosure of this information unless further disclosure is expressly permitted by the written consent of the person to whom it pertains or as otherwise permitted by 42 CFR part 2. A general authorization for the release of medical or other information is NOT sufficient for this purpose. The Federal rules restrict any use of the information to criminally investigate or prosecute any alcohol or drug abuse patient.The records that you are about to access may contain highly sensitive health information, the redisclosure of which is protected by Article 27-F of the [facility] Public Health law. If you continue you may haveaccess to information: Regarding HIV / AIDS; Provided by facilities licensed or operated by the [facility] Office of Mental Health; or Provided by the [facility] Office for People With Developmental Disabilities. If such information is present, then the following [facility] mandated warning applies: This information has been disclosed to you from confidential records which are protected by state law. State law prohibits you from making any further disclosure of this information without the specific written consent of the person to whom it pertains, or as otherwise permitted by law. Any unauthorized further disclosure in violation of state law may result in a fine or group home sentence or both. A general authorization for the release of medical or other information is NOT sufficient authorization for further disclosure. Encounters Encounter Providers Location Date Indications Data Source(s ) Emergency Attender: GARRETT Dove 04/24/2019 [place] geronimo ALBINADANIEL GARRETT 06:20:00 PM EDT [facility] CAttender: STAFF ED - 04/24/2019 STAFF 08:29:00 PM EDT PHYSICIANAdmitter: GARRETT Cook Patient discharged. Insurance Providers Payer name Policy type Policy ID Covered Covered green party's Policy P heidi / Coverage green party ID relationship to [place] [facility] ormation type wright [facility] MEDICAID [id number] SP [id number] COMM [address] [facility] [id number] 01 [id number] [facility] W [id number] MEDICAID [id number] SP [id number] [facility] MEDICAID [id number] SP [id number] COMM PLAN [facility] MEDICAID [id number] SP [id number] 630 COMM PLAN Problems, Conditions, and Diagnoses Code Display Name Description Problem Type Effective Dates Data Source(s) J03.90 Acute tonsillitis, ACUTE Diagnosis 04/24/2019 [facility] unspecified TONSILLITIS, 06:20:00 PM EDT [facility] UNSPECIFIED R50.9 Fever, unspecified FEVER, Diagnosis 04/24/2019 [place] UNSPECIFIED 06:20:00 PM EDT [facility] Results ID Date Data Source [id number] 09/12/2019 11:04:00 PM EDT [facility] Name Value Range Interpretation Code Description Data Dominique rce(s) Supporting Document(s ) SARS-COV-2 [facility] PCR This lab was ordered by [id number] and reported by [facility]. ID Date Data Source Urinalysis.[id number] 04/24/2019 07:03:00 PM EDT [facility] 0 Name Value Range Interpretation Description Data Sup porting Code Source(s) Document(s ) Color of Urine YELLOW <content Saint styleCode="Cassidy Ruben d">Color, Medical Urine Center </content>YELL OW <content styleCode="Alma lics"> (YELLOW )</content> UNK CLEAR <content [facility] styleCode="Cassidy Ruben d">Urine Medical Clarity Center </content>VALE R <content styleCode="[place]"> (CLEAR )</content> UNK NEGATIVE <content [facility] styleCode="Cassidy Ruben d">Urine Medical Bilirubin Center </content>NEGA TIVE <content styleCode="[facility] lics"> (NEGATIVE )</content> Hemoglobin NEGATIVE <content Saint [Presence] in styleCode="Cassidy Herreras Urine by Test d">Urine Blood Medical strip </content>NEGA Center TIVE <content styleCode="Alma lics"> (NEGATIVE )</content> Ketones NEGATIVE <content Saint [Mass/volume] styleCode="Cassidy Herreras in Urine by d">Urine Medical Test strip Ketone Center </content>NEGA TIVE MG/DL<content styleCode="Alma lics"> (NEGATIVE MG/DL)</conten t> Specific 1.015-1.02 <content [facility] gravity of 5 styleCode="Cassidy Miranda Urine by Test d">Urine Medical strip Specific Center [place] </content>1.02 5 <content styleCode="Alma lics"> (1.015-1.025 )</content> pH of Urine by 4.5-8.0 <content Saint Test strip styleCode="Cassidy Herreras d">Urine pH Medical </content>6.0 Center <content styleCode="Alma lics"> (4.5-8.0 )</content> Glucose NEGATIVE <content Saint [Mass/volume] styleCode="Cassidy Herreras in Urine by d">Urine Medical Test strip Glucose Center </content>NEGA TIVE MG/DL<content styleCode="Alma lics"> (NEGATIVE MG/DL)</conten t> Nitrite NEGATIVE <content Saint [Presence] in styleCode="Cassidy Herreras Urine by Test d">Urine Medical strip Nitrite Center </content>NEGA TIVE <content styleCode="Alma lics"> (NEGATIVE )</content> Protein NEGATIVE <content Saint [Mass/volume] styleCode="Cassidy Herreras in Urine by d">Urine Medical Test strip Protein Center </content>NEGA TIVE MG/DL<content styleCode="Alma lics"> (NEGATIVE MG/DL)</conten t> Urobilinogen 0.2-1.0 <content Saint [Units/volume] styleCode="Cassidy Ruben in Urine by d">Urine Medical Test strip Urobilinogen Center </content>0.2 MG/DL<content styleCode="Alma lics"> (0.2-1.0 MG/DL)</conten t> Leukocyte NEGATIVE <content Saint esterase styleCode="Cassidy Herreras [Presence] in d">Urine Medical Urine by Test Leukocyte Center strip </content>NEGA TIVE <content styleCode="Alma lics"> (NEGATIVE )</content> ID Date Data Source Microbiology.[id number] 04/24/2019 06:45:[address] [facility] 400 Name Value Range Interpretation Description Data Sup porting Code Source(s) Document(s ) Streptococcus NEGATIVE <item><conten Saint pyogenes Ag t Ruben [Presence] in styleCode="[facility] Unspecified ld">Rapid Center specimen by Strep A Immunoassay </content>
<table><tbo dy><tr><td>Sp ecimen Number:</td>< td>[id number]< /td></tr><tr> <td>Sample Collection Date/Time: </td><td>04/23 6:45 PM</td></tr>< tr><td>Specim en Source:</td>< td>THROAT</td ></tr><tr><td >Rapid Strep A:</td><td>NE GATIVE </td></tr></t body></table> </item> Procedure Social History Code Duration Value Status Description Data Source(s ) Smoking 04/24/2019 Denies Ever completed Denies Ever Smoked [facility] 07:45:00 PM EDT [facility] C enter Smoking 04/24/2019 Denies Ever completed Denies Ever Smoked [facility] 06:36:00 PM EDT Smoked Medical C enter Smoking 04/24/2019 Denies Ever completed Denies Ever Smoked [facility] 06:29:00 PM EDT Smoked Medical C enter Vital Signs ID Date Data Source UNK Name Value Range Interpretation Code Description Data Source(s) Body temperature 36.817931 36.070169 [facility] Oxygen saturation 100 % 100 % [facility] by Pulse oximetry Heart rate 90 /min 90 /min [facility] Body temperature 37.190496 37.026907 [facility] Respiratory rate 18 /min 18 /min [facility] Oxygen saturation 100 % 100 % [facility] osephs in [facility] by Pulse oximetry Heart rate 102 /min 102 /min [facility]
[2019-12-19 17:52] LABS: HCG,QUALITATIVE URINE Negative
[2019-12-19 17:57] LABS: EPI CELLS 22 /uL (0-25.1); HYALINE CASTS 0 /uL (0-3.1); PH,URINE 5.5 (5.0-8.0); URINE APPEARANCE CLEAR; URINE BACTERIA 296 /uL (0-1359); URINE BILIRUBIN NEGATIVE (NEGATIVE); URINE COLOR YELLOW; URINE GLUCOSE (UA) NEGATIVE (NEGATIVE); URINE KETONE NEGATIVE (NEGATIVE); URINE LEUK ESTERASE TRACE (NEGATIVE); URINE NITRITE NEGATIVE (NEGATIVE); URINE PROTEIN NEGATIVE (NEGATIVE); URINE RBC 3 /uL (0-23.9); URINE UROBILINOGEN 0.2 mg/dL (0.2-1.0); URINE WBC 17 /uL (0-25.8)
--- NOTE | 2019-12-19 18:02 | PDOC ---
History of Present Illness - General Chief Complaint: Urinary Problem Stated Complaint: UTI SYX Time Seen by Provider: 12/19/19 16:23 - History of Present Illness Initial Comments: 12/19/19 18:00 29-year-old female with urinary frequency x2 weeks. No comorbidities Past History - Medical History Allergies/Adverse Reactions: Allergies Allergy/AdvReac Type Severity Reaction Status Date / Time rilpivirine [From Complera] AdvReac Severe Low Blood Verified 10/12/18 09:11 Pressure Home Medications: Ambulatory Orders Ergocalciferol [Vitamin D2] 50,000 unit PO MOFR #8 capsule 05/21/19 Clindamycin [Cleocin -] 300 mg PO TID #21 capsule 06/19/19 Fluticasone Propionate 1 applic TP BID #15 oint...g. 08/13/19 metroNIDAZOLE 0.75% GEL [Metrogel 0.75% Gel -] 1 applic TP DAILY #1 tube 08/13/19 Fluconazole [Diflucan] 150 mg PO ONCE #1 tablet 09/11/19 Sulfamethoxazole/Trimethoprim [Bactrim Ds -] 1 tab PO BID #6 tablet 09/11/19 Amoxicillin/Potassium Clav [Augmentin 875-125 Tablet] 1 each PO BID #14 tablet 09/17/19 Fluconazole 1 tab PO ONCE #1 tablet 09/17/19 Dolutegravir Sodium [Tivicay] 1 tab PO DAILY #30 tablet 09/21/19 Emtricitabine/Tenofov Alafenam [Descovy 200-25 mg Tablet (Nf)] 1 tab PO DAILY #30 tablet 09/21/19 Nitrofurantoin Monohyd/M-Cryst [Macrobid -] 100 mg PO BID #14 capsule 12/19/19 Anemia: Yes Asthma: No Cancer: No Cardiac Disorders: No CVA: No COPD: No CHF: No Dementia: No Diabetes: No GI Disorders: No Disorders: Yes (frequent uti) HTN: No Hypercholesterolemia: No Liver Disease: No ("enlarged liver") Seizures: No Thyroid Disease: No - Surgical History Orthopedic Surgery: Yes (2009 left foot bunion surgery with screws) - Reproductive History Is Patient Now?: No (#): 9 Para: 4 Cervical CA: No Dysfunctional Uterine Bleeding: No Ectopic : No Endometrial CA: No Polycystic Ovaries: No Therapeutic (s) & number: Yes Tubal Ligation: No Spontaneous : 1 - Immunization History Immunization Up to Date: Yes - Psycho-Social/Smoking History Smoking Status: No Smoking History: Never smoked Have you smoked in the past 12 months: No Number of Cigarettes Smoked Daily: 2 If you are a former smoker, when did you quit?: PATIENT STATES SHE ONLY STARTED SMOKING AGAIN THIS WEEK. Information on smoking cessation initiated: No - Substance Abuse Hx (Audit-C & DAST Scrn) How often the patient has a drink containing alcohol: Never Score: In Men: 4 or > Positive; In Women: 3 or > Positive: 0 Screen Result (Pos requires Nsg. Audit-10AR): Negative In the last yr the pt used illegal drug/Rx for NonMed reason: No Score: Yes response is considered Positive: 0 Screen Result (Positive result requires Nsg. DAST-10): Negative Review of Systems - Review of Systems Constitutional: No: Fever ABD/GI: No: Nausea, Vomiting : Yes: Frequency. No: Burning, Dysuria, Discharge, Flank Pain *Physical Exam - Vital Signs Last Vital Signs Temp Pulse Resp BP Pulse Ox 98.2 F 83 17 122/69 99 12/19/19 16:24 12/19/19 16:24 12/19/19 16:24 12/19/19 16:24 12/19/19 16:24 - Physical Exam General Appearance: Yes: Nourished, Appropriately Dressed. No: Apparent Distress HEENT: positive: Symmetrical Neck: positive: Supple Respiratory/Chest: negative: Respiratory Distress Musculoskeletal: positive: Normal Inspection Extremity: positive: Normal Inspection Integumentary: positive: Normal Color Neurologic: positive: master glazier II-XII NML intact, Fully Oriented, Alert ED Treatment Course - ADDITIONAL ORDERS Additional order review: Laboratory Results 12/19/19 16:30 Urine Color Yellow Urine Appearance Clear Urine pH 5.5 Ur Specific Reading 1.015 Urine Protein Negative Urine Glucose (UA) Negative Urine Ketones Negative Urine Blood Negative Urine Nitrite Negative Urine Bilirubin Negative Urine Urobilinogen 0.2 Ur Leukocyte Esterase Trace Urine WBC (Auto) 17 Urine RBC (Auto) 3 Urine Casts (Auto) 0 U Epithel Cells (Auto) 22 Urine Bacteria (Auto) 296 Urine HCG, Qual Negative Medical Decision Making - Medical Decision Making 12/19/19 18:01 Macrobid for UTI follow-up with primary care physician I have reviewed the pathophysiology with the patient. They are in agreement with the treatment plan all questions were answered to their satisfaction. Understanding for follow-up without fail was also conveyed to the patient. Again they are in agreement. Discharge - Discharge Information Problems reviewed: Yes Clinical Impression/Diagnosis: UTI (urinary tract infection) Condition: Stable Disposition: HOME - Admission No - Additional Discharge Information Prescriptions: Nitrofurantoin Monohyd/M-Cryst [Macrobid -] 100 mg PO BID #14 capsule - Follow up/Referral Referrals: Mateus Castrejon MD [Staff Physician] - - Patient Discharge Instructions Additional Instructions: Return to the emergency room for worsening symptoms. Without fail please finish the antibiotics as directed. Follow-up with your primary care physician in 1 to 2 days for further evaluation and treatment options. You must follow-up without fail. Return to the emergency room at any time for further concerns. - Post Discharge Activity
== END 2019-12-19 18:04 | disposition home or self-care (01) ==
LOC: JERFT 16:15
DX: R30.0 Dysuria (principal); N39.0 Urinary tract infection, site not specified
CPT/HCPCS: 81003; 84703; 87086; 87186; 99284-25

== ENCOUNTER 2020-12-12 10:49 | Emergency (ER) | payer OTHER ==
[2020-12-12 11:17] VITALS: BP 118/80; PULSE 87; TEMP 98; BMI 28.3
[2020-12-12] MEDS ORDERED: IBUPROFEN 400 MG TABLET (FP) PO ONE (11:43)
[2020-12-12 11:49] LABS: PH,URINE 6.5 (5.0-8.0); URINE APPEARANCE Clear; URINE BILIRUBIN Negative (NEGATIVE); URINE COLOR Yellow; URINE GLUCOSE (UA) Negative (NEGATIVE); URINE KETONE Negative (NEGATIVE); URINE LEUK ESTERASE Negative (NEGATIVE); URINE NITRITE Negative (NEGATIVE); URINE PROTEIN Negative (NEGATIVE); URINE UROBILINOGEN 0.2 mg/dL (0.2-1.0)
[2020-12-12 12:07] LABS: HCG,QUALITATIVE URINE Negative
== END 2020-12-12 12:22 | disposition home or self-care (01) ==
LOC: JER 10:49 → JERFT 10:49
DX: R35.0 Frequency of micturition (principal)
CPT/HCPCS: 81003; 84703; 87077; 87086; 99283-25

== ENCOUNTER 2021-08-13 11:09 | Emergency (ER) | payer OTHER ==
[2021-08-13 11:43] VITALS: BP 116/73; PULSE 88; TEMP 99
[2021-08-13] MEDS ORDERED: ACETAMINOPHEN 500 MG TABLET (FP) PO ONE (13:36)
[2021-08-13] MEDS ORDERED: ACETAMINOPHEN 500 MG TABLET (FP) ONE (13:40)
== END 2021-08-13 13:43 | disposition home or self-care (01) ==
LOC: JERFT 11:09
DX: M79.671 Pain in right foot (principal)
CPT/HCPCS: 73630-TC-LT; 99283-25

== ENCOUNTER 2021-10-22 13:38 | Emergency (ER) | payer OTHER ==
[2021-10-22 14:23] VITALS: BP 140/78; PULSE 97; RESP 18; TEMP 98.9; BMI 30.2
== END 2021-10-22 17:25 | disposition home or self-care (01) ==
LOC: JER 13:38
DX: J06.9 Acute upper respiratory infection, unspecified (principal); R05.1 Acute cough; M79.10 Myalgia, unspecified site
CPT/HCPCS: 0241U-QW; 99283-25

== ENCOUNTER 2021-11-24 20:55 | Emergency (ER) | payer OTHER ==
[2021-11-24 21:19] VITALS: PULSE 91; RESP 19; TEMP 98.1
[2021-11-24 21:20] VITALS: BP 108/73; BMI 31.2
[2021-11-24 23:11] LABS: BASO % 0.3 % (0-2.0); EOS % 2.6 % (0-4.5); HEMATOCRIT 40.8 % (32.4-45.2); HEMOGLOBIN 13.5 GM/dL (10.7-15.3); LYMPH % 35.6 % (8-40); MCH 27.5 pg (25.7-33.7); MCHC 33.2 g/dl (32.0-36.0); MONO % 5.2 % (3.8-10.2); NEUT % 56.3 % (42.8-82.8); PLATELET COUNT 156 10^3/uL (134-434); RBC 4.91 M/mm3 (3.60-5.2); RDW 15.3 % (11.6-15.6); WHITE BLOOD COUNT 10.4 K/mm3 (4.0-10.0)
== END 2021-11-25 00:53 | disposition home or self-care (01) ==
LOC: JER 20:55
DX: O20.9 Hemorrhage in early pregnancy, unspecified (principal); Z3A.00 Weeks of gestation of pregnancy not specified
CPT/HCPCS: 36415; 76817-TC; 84702; 85025; 86850; 86900; 86901; 99284-25

== ENCOUNTER 2021-12-03 14:54 | Emergency (ER) | payer OTHER ==
[2021-12-03 15:06] VITALS: BP 124/88; PULSE 104; RESP 19; TEMP 98.8; BMI 31.2
[2021-12-03 16:09] LABS: BASO % 0.5 % (0-2.0); EOS % 3.7 % (0-4.5); HEMATOCRIT 40.8 % (32.4-45.2); HEMOGLOBIN 13.6 GM/dL (10.7-15.3); MCH 27.8 pg (25.7-33.7); MCHC 33.3 g/dl (32.0-36.0); MEAN CELL VOLUME 83.3 fl (80-96); MEAN PLT VOLUME 10.4 fl (7.5-11.1); MONO % 9.6 % (3.8-10.2); NEUT % 50.2 % (42.8-82.8); PLATELET COUNT 150 10^3/uL (134-434); RDW 15.5 % (11.6-15.6)
[2021-12-03 16:11] LABS: HCG,QUALITATIVE URINE Positive
[2021-12-03 16:17] LABS: EPI CELLS 14 /uL (0-25.1); HYALINE CASTS 1 /uL (0-3.1); PH,URINE 6.5 (5.0-8.0); URINE APPEARANCE CLEAR; URINE BACTERIA 50 /uL (0-1359); URINE BILIRUBIN NEGATIVE (NEGATIVE); URINE COLOR YELLOW; URINE GLUCOSE (UA) NEGATIVE (NEGATIVE); URINE KETONE NEGATIVE (NEGATIVE); URINE LEUK ESTERASE 1+ (NEGATIVE); URINE NITRITE NEGATIVE (NEGATIVE); URINE PROTEIN NEGATIVE (NEGATIVE); URINE RBC 3 /uL (0-23.9); URINE WBC 10 /uL (0-25.8)
[2021-12-03 16:37] LABS: CALCIUM 8.9 mg/dL (8.5-10.1)
[2021-12-03 16:38] LABS: BLOOD UREA NITROGEN 6.3 mg/dL (7-18)
[2021-12-03 16:41] LABS: CREATININE 0.7 mg/dL (0.55-1.3)
== END 2021-12-03 18:35 | disposition home or self-care (01) ==
LOC: JER 14:54
DX: O23.591 Infection of other part of genital tract in pregnancy, first trimester (principal); O26.891 Other specified pregnancy related conditions, first trimester; N83.292 Other ovarian cyst, left side; Z3A.01 Less than 8 weeks gestation of pregnancy
CPT/HCPCS: 36415; 76817-TC; 80048; 81003; 84702; 84703; 85025; 86850; 86900; 86901; 87070; 87077; 87086; 87186; 87205; 87491; 87591; 99284-25

== ENCOUNTER 2022-02-26 09:33 | Emergency (ER) | payer OTHER ==
[2022-02-26 09:48] VITALS: TEMP 98.2; BMI 33.2
[2022-02-26] MEDS ORDERED: SODIUM CHLORIDE 0.9% 500 ML INFUS.BAG IV ONE (10:49)
[2022-02-26 11:46] LABS: BASO % 0.4 % (0-2.0); EOS % 3.2 % (0-4.5); HEMATOCRIT 38.6 % (32.4-45.2); HEMOGLOBIN 12.9 GM/dL (10.7-15.3); LYMPH % 25.4 % (8-40); MCH 29.1 pg (25.7-33.7); MCHC 33.5 g/dl (32.0-36.0); MEAN PLT VOLUME 11.4 fl (7.5-11.1); MONO % 5.3 % (3.8-10.2); NEUT % 65.7 % (42.8-82.8); PLATELET COUNT 161 10^3/uL (134-434); RBC 4.44 M/mm3 (3.60-5.2); WHITE BLOOD COUNT 8.7 K/mm3 (4.0-10.0)
[2022-02-26 12:12] LABS: CALCIUM 8.9 mg/dL (8.5-10.1)
[2022-02-26 12:13] LABS: ALBUMIN 3.1 g/dl (3.4-5.0); BLOOD UREA NITROGEN 5.7 mg/dL (7-18)
[2022-02-26 12:16] LABS: CREATININE 0.5 mg/dL (0.55-1.3)
[2022-02-26 12:17] LABS: BILIRUBIN,TOTAL 0.3 mg/dL (0.2-1)
[2022-02-26 12:18] LABS: HCG,QUALITATIVE URINE Positive
[2022-02-26 12:21] LABS: EPI CELLS >36 /uL (0-25.1); HYALINE CASTS 0 /uL (0-3.1); PH,URINE 5.5 (5.0-8.0); URINE APPEARANCE CLEAR; URINE BACTERIA 1109 /uL (0-1359); URINE BILIRUBIN NEGATIVE (NEGATIVE); URINE COLOR YELLOW; URINE GLUCOSE (UA) 3+ (NEGATIVE); URINE KETONE NEGATIVE (NEGATIVE); URINE LEUK ESTERASE 1+ (NEGATIVE); URINE NITRITE NEGATIVE (NEGATIVE); URINE PROTEIN NEGATIVE (NEGATIVE); URINE RBC 6 /uL (0-23.9); URINE UROBILINOGEN 0.2 mg/dL (0.2-1.0); URINE WBC 35 /uL (0-25.8)
[2022-02-26] MEDS ORDERED: CEPHALEXIN MONOHYDRATE 500 MG CAPSULE (UD) PO ONE (12:24)
[2022-02-26] MEDS ORDERED: CEPHALEXIN MONOHYDRATE 500 MG CAPSULE (UD) ONE (12:46)
[2022-02-26 13:39] VITALS: BP 118/59; PULSE 92; RESP 18
== END 2022-02-26 13:40 | disposition home or self-care (01) ==
LOC: JER 09:33
DX: R79.89 Other specified abnormal findings of blood chemistry (principal)
CPT/HCPCS: 36415; 80053; 81003; 82010; 82962; 84702; 84703; 85025; 87077; 87086; 87186; 99284-25

== ENCOUNTER 2022-03-26 02:39 | Emergency (ER) | payer OTHER ==
[2022-03-26 02:51] VITALS: BP 122/83; PULSE 97; RESP 18; TEMP 98; BMI 34.2
== END 2022-03-26 04:39 | disposition home or self-care (01) ==
LOC: JER 02:39
DX: O26.892 Other specified pregnancy related conditions, second trimester (principal); M79.89 Other specified soft tissue disorders; Z3A.21 21 weeks gestation of pregnancy
CPT/HCPCS: 99283-25

== ENCOUNTER 2022-03-26 18:15 | Emergency (ER) | payer OTHER ==
[2022-03-26 18:35] VITALS: BP 129/85; PULSE 111; RESP 18; BMI 34.2
[2022-03-26] MEDS ORDERED: ACETAMINOPHEN 325 MG TABLET (FP) ONE (21:26)
[2022-03-26] MEDS ORDERED: ACETAMINOPHEN 325 MG TABLET (FP) PO ONE (22:00)
== END 2022-03-26 22:20 | disposition home or self-care (01) ==
LOC: JER 18:15
DX: O36.4XX0 Maternal care for intrauterine death, not applicable or unspecified (principal); Z3A.21 21 weeks gestation of pregnancy
CPT/HCPCS: 99283-25

== ENCOUNTER 2022-04-24 19:34 | Emergency (ER) | payer OTHER ==
[2022-04-24 19:48] VITALS: BMI 35.2
[2022-04-24 21:57] LABS: BASO % 0.3 % (0-2.0); EOS % 3.7 % (0-4.5); HEMATOCRIT 42.1 % (32.4-45.2); HEMOGLOBIN 13.6 GM/dL (10.7-15.3); LYMPH % 40.1 % (8-40); MCH 27.1 pg (25.7-33.7); MCHC 32.3 g/dl (32.0-36.0); MEAN CELL VOLUME 84.1 fl (80-96); MEAN PLT VOLUME 11.5 fl (7.5-11.1); NEUT % 49.9 % (42.8-82.8); PLATELET COUNT 167 10^3/uL (134-434); RBC 5.01 M/mm3 (3.60-5.2); RDW 14.2 % (11.6-15.6); WHITE BLOOD COUNT 8.5 K/mm3 (4.0-10.0)
[2022-04-24 22:04] LABS: INR 1.1 (0.83-1.09); PROTHROMBIN TIME (PATIENT) 12.8 SEC (9.7-13.0)
[2022-04-24 22:07] LABS: ACTIVATED PTT 30.2 SECONDS (25.2-36.5)
[2022-04-24 22:10] LABS: BLOOD UREA NITROGEN 7.4 mg/dL (7-18); CALCIUM 9.3 mg/dL (8.5-10.1)
[2022-04-24 22:11] LABS: ALBUMIN 3.8 g/dl (3.4-5.0)
[2022-04-24 22:13] LABS: CREATININE 0.7 mg/dL (0.55-1.3)
[2022-04-24 22:15] LABS: BILIRUBIN,TOTAL 0.5 mg/dL (0.2-1); TOT PROT 7.6 g/dl (6.4-8.2)
[2022-04-24] MEDS ORDERED: SODIUM CHLORIDE 0.9% 500 ML INFUS.BAG IV ONE (22:34)
[2022-04-25 00:02] VITALS: BP 113/67; PULSE 80; RESP 18; TEMP 98.6
== END 2022-04-25 00:03 | disposition short-term general hospital (02) ==
LOC: JER 19:34
DX: K80.50 Calculus of bile duct without cholangitis or cholecystitis without obstruction (principal); Z20.822 Contact with and (suspected) exposure to COVID-19
CPT/HCPCS: 0241U-QW; 36415; 76705-TC; 80053; 83690; 84703; 85025; 85610; 85730; 86850; 86900; 86901; 93005; 93010; 99285-25

== ENCOUNTER 2022-04-30 13:34 | Emergency (ER) | payer OTHER ==
[2022-04-30 13:45] VITALS: BP 117/72; PULSE 81; RESP 20; TEMP 99.7; BMI 35.2
[2022-04-30] MEDS ORDERED: SODIUM CHLORIDE 0.9% 500 ML INFUS.BAG IV ONE (14:48)
[2022-04-30] MEDS ORDERED: ACETAMINOPHEN 1000 MG/100 ML BAG IVPB ONE (14:48)
== END 2022-04-30 15:54 | disposition left against medical advice (07) ==
LOC: JER 13:34
DX: R10.84 Generalized abdominal pain (principal)
CPT/HCPCS: 99281-25

== ENCOUNTER 2023-01-18 17:12 | Emergency (ER) | payer OTHER ==
[2023-01-18 17:44] VITALS: BP 140/84; PULSE 82; RESP 17; TEMP 98.9; BMI 34.0
[2023-01-18] MEDS ORDERED: TETRACAINE 0.5% OPHTH SOLN 2 ML BOTTLE OD ONE (18:49)
[2023-01-18] MEDS ORDERED: FLUORESCEIN NA 1 EA STRIP OD ONE (18:49)
[2023-01-18] MEDS ORDERED: TETRACAINE 0.5% OPHTH SOLN 2 ML BOTTLE ONE ×2 (18:54→19:17)
[2023-01-18] MEDS ORDERED: FLUORESCEIN NA 1 EA STRIP ONE ×2 (18:54→19:17)
== END 2023-01-18 20:04 | disposition home or self-care (01) ==
LOC: JER 17:12 → JERFT 17:12
DX: H10.31 Unspecified acute conjunctivitis, right eye (principal); H57.11 Ocular pain, right eye; H53.8 Other visual disturbances; H57.89 Other specified disorders of eye and adnexa
CPT/HCPCS: 99283-25

== ENCOUNTER 2023-01-24 11:22 | Emergency (ER) | payer OTHER ==
[2023-01-24 12:47] VITALS: BP 125/86; PULSE 86; RESP 18; TEMP 98.3; BMI 34.2
== END 2023-01-24 14:57 | disposition home or self-care (01) ==
LOC: JER 11:22 → JERFT 11:22
DX: L03.213 Periorbital cellulitis (principal)
CPT/HCPCS: 99283-25

== ENCOUNTER 2023-05-07 18:12 | Emergency (ER) | payer OTHER ==
[2023-05-07 18:26] VITALS: RESP 16; TEMP 98.8; BMI 33.2
[2023-05-07] MEDS ORDERED: IBUPROFEN 600 MG TABLET (FP) PO ONE (18:51)
[2023-05-07] MEDS ORDERED: ACETAMINOPHEN 500 MG TABLET (FP) ONE (18:51)
[2023-05-07] MEDS: ACETAMINOPHEN 500 MG TABLET (FP) PO ONE (18:57)
[2023-05-07] MEDS: IBUPROFEN 600 MG TABLET (FP) PO ONE (18:57)
[2023-05-07 19:45] VITALS: BP 107/75; PULSE 97
== END 2023-05-07 19:54 | disposition home or self-care (01) ==
LOC: JER 18:12 → JERFT 18:12
DX: J06.9 Acute upper respiratory infection, unspecified (principal); B34.9 Viral infection, unspecified; R05.9 Cough, unspecified; J32.9 Chronic sinusitis, unspecified; A49.9 Bacterial infection, unspecified; R10.10 Upper abdominal pain, unspecified; R10.13 Epigastric pain; R50.9 Fever, unspecified; R11.0 Nausea; Z20.822 Contact with and (suspected) exposure to COVID-19
CPT/HCPCS: 0241U-QW; 99283-25

== ENCOUNTER 2023-11-08 18:57 | Emergency (ER) | payer OTHER ==
[2023-11-08 19:07] VITALS: BP 136/88; PULSE 117; RESP 20; TEMP 99; BMI 33.2
[2023-11-08] MEDS: LACTATED RINGERS SOLUTION 1000 ML INFUS.BAG IV ONE (20:22)
[2023-11-08 20:40] LABS: VENOUS BASE EXCESS 3.8 mmol/L (-2-2); VENOUS O2 SATURATION 66.8 % (70-80); VENOUS PCO2 57.3 mmHg (38-52); VENOUS PH 7.349 (7.310-7.410)
[2023-11-08 20:47] LABS: BASO % 0.5 % (0-2.0); EOS % 3.3 % (0-4.5); HEMATOCRIT 37.6 % (32.4-45.2); HEMOGLOBIN 12.5 GM/dL (10.7-15.3); LYMPH % 39.1 % (8-40); MCH 26.7 pg (25.7-33.7); MCHC 33.2 g/dl (32.0-36.0); MEAN CELL VOLUME 80.6 fl (80-96); MEAN PLT VOLUME 10.7 fl (7.5-11.1); MONO % 5.1 % (3.8-10.2); PLATELET COUNT 157 10^3/uL (134-434); RBC 4.67 M/mm3 (3.60-5.2); RDW 14.1 % (11.6-15.6); WHITE BLOOD COUNT 7.3 K/mm3 (4.0-10.0)
[2023-11-08 20:59] LABS: POTASSIUM 4.1 mmol/L (3.5-5.1)
[2023-11-08 21:01] LABS: CALCIUM 9.3 mg/dL (8.5-10.1)
[2023-11-08 21:02] LABS: ALBUMIN 3.5 g/dl (3.4-5.0); BLOOD UREA NITROGEN 9.2 mg/dL (7-18)
[2023-11-08 21:05] LABS: CREATININE 0.9 mg/dL (0.55-1.3)
[2023-11-08 21:06] LABS: BILIRUBIN,TOTAL 0.3 mg/dL (0.2-1); TOT PROT 7.2 g/dl (6.4-8.2)
[2023-11-08 23:50] LABS: PH,URINE 6.5 (5.0-8.0); URINE APPEARANCE CLEAR; URINE BILIRUBIN NEGATIVE (NEGATIVE); URINE COLOR DK YELLOW; URINE GLUCOSE (UA) TRACE (NEGATIVE); URINE KETONE TRACE (NEGATIVE); URINE LEUK ESTERASE NEGATIVE (NEGATIVE); URINE NITRITE NEGATIVE (NEGATIVE); URINE PROTEIN TRACE (NEGATIVE)
== END 2023-11-09 00:03 | disposition home or self-care (01) ==
LOC: JER 18:57
DX: E11.65 Type 2 diabetes mellitus with hyperglycemia (principal); R00.0 Tachycardia, unspecified; Z79.84 Long term (current) use of oral hypoglycemic drugs
CPT/HCPCS: 36415; 80053; 81003; 82010; 82803; 82962; 83735; 84703; 85025; 87086; 99284-25

== ENCOUNTER 2023-11-28 14:10 | Emergency (ER) | payer OTHER ==
[2023-11-28 14:17] VITALS: TEMP 98.6; BMI 33.2
[2023-11-28] MEDS ORDERED: LIDOCAINE 5% TOPICAL PATCH ONE (15:47)
[2023-11-28] MEDS ORDERED: KETOROLAC TROMETHAMINE 30 MG/1 ML VIAL ONE (15:47)
[2023-11-28] MEDS: KETOROLAC TROMETHAMINE 30 MG/1 ML VIAL IM ONE (15:56)
[2023-11-28] MEDS: LIDOCAINE 5% TOPICAL PATCH TP ONE (15:57)
[2023-11-28 16:50] VITALS: BP 109/81; PULSE 85; RESP 12
[2023-11-28] MEDS ORDERED: LIDOCAINE PATCH REMOVAL MC SCH (22:00)
== END 2023-11-28 18:40 | disposition left against medical advice (07) ==
LOC: JER 14:10
PROC: 3E0133Z Introduction of Anti-inflammatory into Subcutaneous Tissue, Percutaneous Approach (ICD-10-PCS; principal; 2023-11-28)
DX: M54.6 Pain in thoracic spine (principal)
CPT/HCPCS: 99284-25

== ENCOUNTER 2024-03-01 20:12 | Emergency (ER) | payer OTHER ==
[2024-03-01 20:17] VITALS: BP 117/77; PULSE 79; RESP 20; TEMP 99.2; BMI 29.2
[2024-03-01] MEDS ORDERED: BACITRACIN ZINC 15 GM TUBE TOPICAL OINTMENT ONE (20:58)
== END 2024-03-01 21:13 | disposition home or self-care (01) ==
LOC: JERFT 20:12
DX: N64.59 Other signs and symptoms in breast (principal)
CPT/HCPCS: 99283-25

== ENCOUNTER 2024-04-23 21:32 | Emergency (ER) | payer OTHER ==
[2024-04-23 21:39] VITALS: BMI 29.2
[2024-04-23] MEDS ORDERED: ONDANSETRON 4 MG/2 ML VIAL ONE (22:39)
[2024-04-23] MEDS: ONDANSETRON 4 MG/2 ML VIAL IVPUSH ONE (22:41)
[2024-04-23] MEDS: SODIUM CHLORIDE 0.9% 500 ML INFUS.BAG IV ONE (22:41)
[2024-04-23 22:59] LABS: BASO % 0.3 % (0-2.0); EOS % 3.1 % (0-4.5); HEMATOCRIT 38.8 % (32.4-45.2); HEMOGLOBIN 12.3 GM/dL (10.7-15.3); LYMPH % 32.1 % (8-40); MCH 24.8 pg (25.7-33.7); MCHC 31.6 g/dl (32.0-36.0); MEAN CELL VOLUME 78.6 fl (80-96); MEAN PLT VOLUME 11.3 fl (7.5-11.1); MONO % 5.4 % (3.8-10.2); NEUT % 59.1 % (42.8-82.8); PLATELET COUNT 163 10^3/uL (134-434); RBC 4.93 M/mm3 (3.60-5.2); RDW 15.8 % (11.6-15.6); WHITE BLOOD COUNT 8.7 K/mm3 (4.0-10.0)
[2024-04-23 23:06] LABS: EPI CELLS >36 /uL (0-25.1); HCG,QUALITATIVE URINE Negative; HYALINE CASTS 0 /uL (0-3.1); PH,URINE 6.5 (5.0-8.0); URINE APPEARANCE CLEAR; URINE BACTERIA 1166 /uL (0-1359); URINE BILIRUBIN NEGATIVE (NEGATIVE); URINE COLOR YELLOW; URINE GLUCOSE (UA) 3+ (NEGATIVE); URINE KETONE TRACE (NEGATIVE); URINE LEUK ESTERASE NEGATIVE (NEGATIVE); URINE NITRITE NEGATIVE (NEGATIVE); URINE PROTEIN NEGATIVE (NEGATIVE); URINE RBC 9 /uL (0-23.9); URINE UROBILINOGEN 0.2 mg/dL (0.2-1.0)
[2024-04-23 23:10] LABS: VENOUS BASE EXCESS -3.2 mmol/L (-2-2); VENOUS O2 SATURATION 82.8 % (70-80); VENOUS PCO2 43.1 mmHg (38-52); VENOUS PH 7.336 (7.310-7.410)
[2024-04-23 23:40] LABS: CHLORIDE 105 mmol/L (98-107); SODIUM 135 mmol/L (136-145)
[2024-04-23 23:42] LABS: BLOOD UREA NITROGEN 9.1 mg/dL (7-18); CALCIUM 8.7 mg/dL (8.5-10.1)
[2024-04-23 23:43] LABS: ALBUMIN 3.5 g/dl (3.4-5.0); CO2 24 mmol/L (21-32); GLUCOSE,RANDOM 263 mg/dL (74-106)
[2024-04-23 23:44] LABS: ANION GAP 6 mmol/L (4-13); POTASSIUM 7.1 mmol/L (3.5-5.1)
[2024-04-23 23:45] LABS: CREATININE 1.2 mg/dL (0.55-1.3)
[2024-04-23 23:46] LABS: SGOT/AST 98 U/L (15-37)
[2024-04-23 23:47] LABS: BILIRUBIN,TOTAL 0.4 mg/dL (0.2-1)
[2024-04-23 23:48] LABS: TOT PROT 7.6 g/dl (6.4-8.2)
[2024-04-24] LABS: SGPT/ALT 38 U/L (13-61)
[2024-04-24 00:19] LABS: POTASSIUM 3.7 mmol/L (3.5-5.1)
[2024-04-24 00:21] LABS: BLOOD UREA NITROGEN 8.2 mg/dL (7-18)
[2024-04-24 01:27] VITALS: BP 100/66; PULSE 83; RESP 17; TEMP 98.3
[2024-04-24 01:37] LABS: ALK PHOS 77 U/L (45-117)
== END 2024-04-24 01:52 | disposition home or self-care (01) ==
LOC: JER 21:32
PROC: 3E033GC Introduction of Other Therapeutic Substance into Peripheral Vein, Percutaneous Approach (ICD-10-PCS; principal; 2024-04-23)
DX: D25.1 Intramural leiomyoma of uterus (principal); R10.84 Generalized abdominal pain; K59.00 Constipation, unspecified; R14.0 Abdominal distension (gaseous); R11.10 Vomiting, unspecified; R53.1 Weakness; R50.9 Fever, unspecified; R00.0 Tachycardia, unspecified
CPT/HCPCS: 36415; 74177-TC; 80048; 80053; 81003; 82803; 82962; 83690; 84703; 85025; 87086; 96374; 99285-25

== ENCOUNTER 2024-06-16 06:34 | Emergency (ER) | payer OTHER ==
[2024-06-16 06:42] VITALS: BP 114/90; PULSE 104; RESP 20; TEMP 99.5; BMI 29.2
[2024-06-16] MEDS ORDERED: ACETAMINOPHEN 500 MG TABLET (FP) ONE (07:34)
[2024-06-16] MEDS: ACETAMINOPHEN 500 MG TABLET (FP) PO ONE (07:36)
[2024-06-16 08:03] LABS: EPI CELLS >36 /uL (0-25.1); HCG,QUALITATIVE URINE Negative; HYALINE CASTS 1 /uL (0-3.1); URINE APPEARANCE CLOUDY; URINE BACTERIA 881 /uL (0-1359); URINE BILIRUBIN NEGATIVE (NEGATIVE); URINE COLOR YELLOW; URINE GLUCOSE (UA) TRACE (NEGATIVE); URINE KETONE TRACE (NEGATIVE); URINE LEUK ESTERASE TRACE (NEGATIVE); URINE NITRITE NEGATIVE (NEGATIVE); URINE PROTEIN TRACE (NEGATIVE); URINE RBC 10 /uL (0-23.9); URINE WBC 23 /uL (0-25.8)
== END 2024-06-16 08:29 | disposition home or self-care (01) ==
LOC: JER 06:34
DX: H66.92 Otitis media, unspecified, left ear (principal); R30.0 Dysuria
CPT/HCPCS: 81003; 82962; 84703; 87086; 99283-25